=== PATIENT | female | born 1950 | race Caucasian/White ===

== ENCOUNTER → 2017-04-10 14:25 | Outpatient (CLI) | payer MEDICAID, SELFPAY ==
--- NOTE | 2017-04-10 14:26 | RAD_ITS ---
STUDY: X-RAY - PELVIS AND BILATERAL HIPS REASON FOR EXAM: Chronic bilateral hip pain. TECHNIQUE: Radiological exam, hip, bilateral, with pelvis when performed; 2 views COMPARISON: None. FINDINGS: There are phleboliths in the pelvis and a metallic clip in the right hemipelvis. There are degenerative changes of the lower lumbar spine. There is mild arthrosis of the left sacroiliac joint. Normal bilateral superior and inferior pubic rami. Normal pubic symphysis. Normal bilateral ischial tuberosities. Normal visualized right femoral head. Normal right acetabulum. Normal right hip joint. Normal visualized left femoral head. Normal left acetabulum. Normal left hip joint. RAD/Hips B/L min 2 views w/ Pelvis IMPRESSION: Mild left sacroiliac arthrosis. Degenerative changes lower lumbar spine. Electronically Signed: Juan Banda MD at 10:12 EST Tel , Service support ,
== END ==
PROVIDERS: Family Provider Nurse Practitioner Family; PCP Nurse Practitioner Family; Visit Provider Orthopaedic Surgery
DX: M25.551 Pain in right hip (principal); M25.552 Pain in left hip
CPT/HCPCS: 73521

== ENCOUNTER → 2017-10-22 13:30 | Outpatient (CLI) | payer MEDICAID, SELFPAY ==
[2017-10-30 12:26] LABS: HPV APTIMA, High Risk Negative (Negative)
== END ==
PROVIDERS: Visit Provider Obstetrics & Gynecology
DX: Z12.4 Encounter for screening for malignant neoplasm of cervix (principal)
CPT/HCPCS: 88175; G0145

== ENCOUNTER → 2018-05-21 11:17 | Outpatient (CLI) | payer MEDICARE, MEDICAID, SELFPAY ==
[2018-05-21 10:23] VITALS: BMI 37.0
--- NOTE | 2018-05-21 11:21 | RAD_ITS ---
STUDY: X-RAY - LEFT HAND REASON FOR EXAM: Female, 67 years old. Pain. Firm mass laterally. No known injury. TECHNIQUE: 3 view(s) of the hand. COMPARISON: None. FINDINGS: There is joint space narrowing of the radiocarpal articulation consistent with degenerative arthrosis. There is a positive ulnar variant of the distal radioulnar articulation. Normal visualized carpal bones. There is degenerative joint disease of the scaphotrapezium / trapezoid articulation. The remainder of the carpal articulations are normal. Normal carpometacarpal articulation of the thumb. Normal second through fifth carpometacarpal joints. Normal metacarpi. Normal metacarpophalangeal joint of the thumb. Normal interphalangeal joint of the thumb. Normal proximal and distal phalanges of the thumb. Normal metacarpophalangeal joints of the second through fifth fingers. Normal proximal and distal interphalangeal joints of the second through fifth fingers. Normal phalanges of the second through fifth fingers. No visualized soft tissue mass. RAD/Hand Min 3 Views IMPRESSION: Degenerative changes of the wrist. Electronically Signed: Erick Multani DO at 15:29 EDT Tel [phone], Service support ,
== END ==
PROVIDERS: Family Provider Internal Medicine; PCP Internal Medicine; Referring Provider Surgery; Visit Provider Surgery
DX: R22.32 Localized swelling, mass and lump, left upper limb (principal)
CPT/HCPCS: 73130

== ENCOUNTER 2018-07-01 06:27 | Day surgery (SDC) | payer MEDICARE, MEDICAID, SELFPAY ==
[2018-05-21 10:23] VITALS: BMI 37.0
--- NOTE | 2018-06-30 16:56 | PCM.HP.BLA ---
History and Physical Date of Admission: 07/01/18 HISTORY OF PRESENT ILLNESS 67 year old woman presents with a mass on the proximal aspect dorsum left hand by index finger that has increased in size over the last several months. There is some pain when her left hand is bumped. She has generalized numbness of the index finger, long finger, and ring finger for a while because of nerve compression in her neck. She has diabetes mellitus, and she states her latest HgbA1c was 7.4. Patient is right hand dominant. She has no trouble with activities of daily living. She denies fever. She denies trauma. She denies any infection. An X-Ray showed degenerative changes in the wrist. She presents at this time for further evaluation and treatment. PAST MEDICAL HISTORY Premature atrial contractions Premature ventricular contraction Tachycardia Paroxysmal atrial fibrillation Hypertension Hyperlipidemia [employer] current use of anticoagulant Chronic atrial fibrillation Arthritis Back problem Bleeding disorder Bone fracture Breast lump Cataract Depression Glaucoma IBS (irritable bowel syndrome) Neuropathy Osteoarthritis PTSD (post-traumatic stress disorder) Panic attacks Pituitary tumor Pneumonia Chronic fatigue Degenerative disc disease Diabetes Fibromyalgia GERD (gastroesophageal reflux disease) Osteopenia Seizure disorder, secondary Sleep apnea PAST SURGICAL HISTORY surgical removal of skin lesion cholecystectomy knee replacement left knee knee surgery repair of left rotator cuff tonsillectomy total hysterectomy tubal ligation total right knee replacement breast lumpectomy left knee arthroscopy tonsillectomy excision soft tissue mass ALLERGIES iodine povidone-iodine [From Betadine] adhesive tape latex soap [From Betadine] CHLORAPREP MEDICATIONS Amitriptyline HCl [Elavil] Atorvastatin Calcium [Lipitor] Meloxicam [Mobic] Valsartan [Diovan] predniSONE Estrogens,Esterified [Menest] Fluticasone 0.05% [Flonase Nasal [place]] Gabapentin [Neurontin] Lansoprazole [Prevacid] Latanoprost 0.005% [Xalatan Ophthalmic] Cetirizine HCl [Zyrtec] Cyanocobalamin [Vitamin B12] Methylsulfonylmethane [MSM] warfarin cholecalciferol (vitamin D3) duloxetine hydroxyzine verapamil ER FAMILY HISTORY Father - CAD (coronary artery disease), Melanoma, Respiratory disease, Skin cancer, ULCER DISEASE, Alzheimer disease, Anemia, Anxiety, Arthritis, Bleeding disorder, Depression (emotion), Heart disease, High cholesterol Mother - Diabetes, Arthritis, Heart disease, Hypertension, Osteoporosis Daughter - Hormonal disorder Brother - Anxiety, Asthma, Bleeding disorder, Depression (emotion), Heart disease Sister - Cancer, Lung cancer Grandfather - CVA (cerebral vascular accident) Grandmother - CVA (cerebral vascular accident) SOCIAL HISTORY Smoking Status: Never smoker alcohol intake: never substance use type: does not use REVIEW OF SYSTEMS General - Denies fever and weight loss. Has fatigue. Eyes -Has cataracts and glaucoma. ENT - Denies nasal congestion and sore throat. Has chronic sinus problems. Endocrine - Denies excessive thirst and urination. Has heat intolerance. Skin - Denies skin cancer. Has painful mass proximal aspect dorsum left hand by index finger. Musculoskeletal - Has joint pain, joint stiffness, weakness of muscles and joints, back pain, and arthritis. Neuro - Denies headaches. Has light headedness. Cardiovascular - Denies chest pain and shortness of breath with exertion. Has fatigue and light headedness. Psych - Denies anxiety. Has depression. Respiratory - Denies chronic cough. Has shortness of breath and asthma. Gastrointestinal - Denies nausea, vomiting, diarrhea, and constipation. Hematologic - Denies abnormal bruising and bleeding. Genitourinary - Denies hematuria and urinary frequency. Has incontinence. PHYSICAL EXAMINATION General - Alert and Oriented HEENT - PERRL. EOMI. Throat is clear. No suspicious lesions noted. Neck - Supple and nontender. No cervical adenopathy. No suspicious lesions noted. Lungs - Clear to auscultation. Heart - Regular rate and rhythm. Abdomen - Soft and nondistended. Extremities - FROM. No axillary adenopathy. Radial pulses are palpable. On the proximal aspect dorsum left hand by index finger is a 4 mm firm mass. It is mobile. Mild tenderness to palpation. No ulceration. Generalized paresthesias to pinprick to index finger, long finger, and ring finger. Neuro - CN II-XII grossly intact. Psych - Normal mood and affect. ASSESSMENT 1. 4 mm painful mass proximal aspect dorsum left hand by index finger. 2. Family history of skin cancer. PLAN Recommend excision of this firm mass dorsum left hand by index finger. It is mobile and doesn't appear to be adherent to the underlying tendons. Will send the mass to Pathology for analysis to rule out carcinoma. X-Ray showed degenerative changes in the wrist. Surgery can be done on an outpatient basis under local anesthesia and IV sedation. May need a forearm tourniquet for a little while. She states she is scheduled to have a mass excised from her left elbow next week at [facility] Will tentatively schedule excision of this hand mass after some healing has occurred, about 4-6 weeks. Patient was informed of the risks and complications of the procedure including alternatives to surgery. These were discussed with the patient personally. Patient voices understanding and wishes to proceed. Some of the risks and complications were included in a form from the [place] [employer].
[2018-07-01] VITALS (7 sets, daily range): BP systolic 105–130; BP diastolic 66–84; PULSE 89–98; RESP 16; TEMP 36.2–36.3; O2SAT 93–97; BMI 38.0
[2018-07-01 07:05] LABS: Prothrombin Time Fingerstick 11.3 SEC (11.9-14.4)
--- NOTE | 2018-07-01 08:00 | MASS_PTH ---
PATIENT: NOEMI LYON LOC: [facility] [place] U#:[id number] AGE/SX: 67/F ROOM: RE07/01/[address]: Dr. Dmitriy Zhang MD : 1950 BED: DIS: 07/01/2018 SPEC #: [id number] RECD: 07/01/18 09:38 STATUS: MAR NIKKI #: [id number] AFSHIN: 07/01/18 08:[address]: Dmitriy Zhang DEPT: SURGICAL PATHOLOGY RECD BY: Kin Mclean ENTERED: 07/01/18 11:45 SP TYPE: Mass OTHR DR: Dr. Meghann Jacob MD Tissues: Left hand Procedures: Surgery Specimen Level III HEADER OPERATION: Excision, soft tissue mass, dorsum hand by index finger PRE-OP DIAGNOSIS: Painful mass, 4mm, proximal aspect dorsum, left hand by index finger TISSUE SUBMITTED: Mass proximal aspect dorsum, left hand MICROSCOPIC DIAGNOSIS Left hand, mass proximal aspect dorsum, excision: Mature adipose tissue, consistent with lipoma with fat necrosis and dystrophic calcification. CHICO:jose alfredo 07/02/18 MICROSCOPIC DESCRIPTION Slides are reviewed. GROSS DESCRIPTION Received in fixative is one container labeled with the patient's name and designated mass proximal aspect dorsum left hand. The specimen consists of an irregular piece of soft tissue measuring 0.5 x 0.6 x 0.2 cm. The entire specimen is submitted in one cassette. / CHICO:jose alfredo 07/01/18 TC:1 CPT: 40249
[2018-07-01] MEDS: Cefazolin 2 GM in 0.9% Normal Saline 100 ML IV (08:02)
[2018-07-01] MEDS: Mupirocin Ointment 22gm Tube 1 APPLIC (08:20)
--- NOTE | 2018-07-01 08:26 | OP.PCM_ITS ---
Report of Operation Date of Procedure: 07/01/18 Pre-Operative Diagnosis: 1. 4 mm painful mass proximal aspect dorsum left hand by index finger. 2. Family history of skin cancer. Post-Operative Diagnosis: Same. Surgery/Procedure Performed:: Excision 4 mm painful mass proximal aspect dorsum left hand by index finger with 1 cm layered closure. Description of Surgical Findings:: 67 year old woman presents with a mass on the proximal aspect dorsum left hand by index finger that has increased in size over the last several months. There is some pain when her left hand is bumped. She has generalized numbness of the index finger, long finger, and ring finger for a while because of nerve compression in her neck. She has diabetes mellitus, and she states her latest HgbA1c was 7.4. Patient is right hand dominant. She has no trouble with a ctivities of daily living. She denies fever. She denies trauma. She denies any infection. An X-Ray showed degenerative changes in the wrist. Patient was informed of the risks and complications of the procedure including alternatives to surgery. These were discussed with the patient personally. Patient voices understanding and wishes to proceed. Some of the risks and complications were included in a form from the [place] [employer]. Some of the risks and complications that were discussed included but were not inclusive of failure to diagnose including symptom relief, pain, infection, numbness, stiffness, loss of digit, RSD (CRPS), need for further surgery, contracture, and wound healing problems. expanded function dental assistant: None Type of Anesthesia:: Local MAC - xylocaine with epinephrine and IV sedation. Specimen's removed: Painful mass proximal aspect dorsum left hand by index finger to Pathology. Drains: None. Estimated Blood Loss (mL): 2 ml. Description of Procedure: Patient was taken to OR in supine position and was given IV sedation. The left hand was prepped and draped in the usual fashion. SCD's were placed for DVT prophylaxis. Perioperative antibiotics were given intravenously. A forearm tourniquet was placed. The mass proximal aspect dorsum left hand by index finger was infiltrated with xylocaine and epinephrine. After waiting 5 minutes for the anesthetic to take effect, a longitudinal incision was made over the mass. The firm mass was dissected free from the surrounding subcutaneous tissue. It was not adherent to the underlying tendon. It was not adherent to the overlying skin. The mass firm and bilobed. It was well encapsulated. The mass was sent to Pathology for analysis to rule out carcinoma. Hemostasis was obtained with electrocautery. The wound was irrigated with saline. The wound was closed in a layered fashion with 5-0 Monocryl interrupted sutures for the deep dermis and subcutaneous tissue. The skin was approximated with 5-0 Prolene simple interrupted sutures. Antibiotic ointment was applied followed by 2x2 gauze followed by a compression peña wrap. The length of the layered closure was 1 cm. Patient tolerated the procedure well and was sent to PACU in satisfactory condition. Patient will be sent home on antibiotics and pain medication. She will keep her left hand elevated during the initial postop period. Patient will followup in a week for a wound check and for discussion of the pathology report. Will remove the sutures in 2 weeks. Encourage range of motion exercises to minimize stiffness. Grafts/Implants Used: None. - Complications None. - Admit VTE Documentation VTE Present on Admission: No VTE Mechan Device Prophylaxis: SCD's VTE Pharm Prophylaxis ordered?: No Code Visit Surgery Charges CPT - 00938 ICD-10 - R22.32, R20.8, Z80.8
--- NOTE | 2018-07-01 08:39 | DCINST_ITS ---
You will use the following diet at home:: No restrictions Discharge Activity: May not drive while taking narcotic pain medications., May Shower - in two days., - - no heavy lifting with left hand. keep left hand elevated. May shower in (days): 2 May resume sexual activity in: No Restrictions Ice area for (Minutes): 5 - as needed for swelling. Weight Bearing Status: Weight bearing as tolerated Lifting Restrictions: 10 lbs. Keep extremity elevated above heart level: Left Arm Call your doctor if your incision/area has: Continuous Slow Oozing, Sudden Increased Bleeding, Increased Pain/ Swelling, Increased Redness, Foul Smelling Discharge, Swelling at the incision site Call your doctor if you observe: Fever of 101 or Higher, Coldness, Increased Pain, Shortness of breath, Chest pain, Calf discomfort, Uncontrolled pain Suture Line Care: - - after dressing removed in two days, apply antibiotic ointment to suture line daily. Change Dressing in (Days):: 2 - reapply peña wrap after showering. Cleanse incision/area with: - - may get incision wet in the shower in two days. Additional Instructions: May resume Coumadin tomorrow 07/02/18. Allergies/Adverse Reactions: Allergies iodine Allergy (Verified 06/25/18 13:18) BREATHING ISSUES/PRESSURE IN CHEST CT DYE AND TOPICALLY ALLERGY povidone-iodine [From Betadine] Allergy (Verified 06/25/18 13:18) Rash adhesive tape Adverse Reaction (Severe, Verified 06/25/18 13:18) SKIN BREAKDOWN latex Adverse Reaction (Severe, Verified 06/25/18 13:18) ADVERSE REACTION soap [From Betadine] Adverse Reaction (Verified 06/25/18 13:18) Rash CLORAPREP Allergy (Uncoded 06/25/18 13:18) Itching Medications to take at Discharge Amitriptyline HCl [Elavil] 25 mg PO QHS 12/22/14 Atorvastatin Calcium [Lipitor] 80 mg PO QHS 12/22/14 Meloxicam [Mobic] 15 mg PO DAILY 12/22/14 Valsartan [Diovan] 320 mg PO QHS 12/22/14 predniSONE tablet 5 mg PO DAILY 12/22/14 Estrogens,Esterified [Menest] 1.25 mg PO QHS 04/22/15 Fluticasone 0.05% [Flonase Nasal [place]] 2 spray NASAL BID 04/22/15 Gabapentin [Neurontin] 1,200 mg PO TID 04/22/15 Lansoprazole [Prevacid] 30 mg PO BID 04/22/15 Latanoprost 0.005% [Xalatan Opthalmic] 1 drp EACH EYE QHS 04/22/15 Cetirizine HCl [Zyrtec] 10 mg PO DAILY 12/05/15 Cyanocobalamin [Vitamin B12] 500 mcg PO DAILY 12/05/15 Methylsulfonylmethane [MSM] 3 - 5 cap PO DAILY 12/05/15 Oxygen, Home [Home Oxygen] 3 lpm NASAL QHS 12/05/15 warfarin 3 mg tablet 3 mg PO QDAY #30 tab 05/21/17 cholecalciferol (vitamin D3) 1,000 unit tablet 3,000 unit PO QDAY tab 08/14/17 duloxetine 60 mg capsule,delayed release 60 mg PO QDAY cap 08/14/17 hydroxyzine HCl 50 mg tablet 50 mg PO DAILY PRN 08/14/17 verapamil ER 360 mg 24 hr capsule,extended release 360 mg PO QHS #90 cap 01/20/18 Cefadroxil [Duricef] 500 mg PO BID #8 cap 07/01/18 Lactobacillus Acidophilus/Fos [Acidophilus Probiotic Tablet] 1 ea PO BID #10 tab 07/01/18 Oxycodone HCl/Acetaminophen [Percocet 5/325] 1 tab PO 4X/DAY PRN PRN 4 Days #15 tab 07/01/18 The following prescriptions were given: Oxycodone HCl/Acetaminophen [Percocet 5/325] 1 tab PO 4X/DAY PRN PRN 4 Days #15 tab PRN Reason: Pain Cefadroxil [Duricef] 500 mg PO BID #8 cap Lactobacillus Acidophilus/Fos [Acidophilus Probiotic Tablet] 1 ea PO BID #10 tab Primary Care Physician: Meghann Jacob MD [Primary Care Provider] - Test Results: Test results from this visit will be discussed in further detail at your follow- up appointment, if applicable. Please Follow Up With: Dmitriy Zhang MD When: one week. call [phone] for appt. Proposed Discharge Date: 07/01/18
== END 2018-07-01 10:00 | disposition home or self-care (01) ==
LOC: SDC 06:28 → AC 06:29
PROVIDERS: Family Provider Internal Medicine; PCP Internal Medicine; Referring Provider Surgery; Visit Provider Surgery
PROC: (CPT 12041; principal; 2018-07-01 07:45)
DX: R22.32 Localized swelling, mass and lump, left upper limb (principal); R20.0 Anesthesia of skin; I48.0 Paroxysmal atrial fibrillation; I10 Essential (primary) hypertension; M19.90 Unspecified osteoarthritis, unspecified site; E11.9 Type 2 diabetes mellitus without complications; M79.7 Fibromyalgia; K21.9 Gastro-esophageal reflux disease without esophagitis; G47.30 Sleep apnea, unspecified; G40.909 Epilepsy, unspecified, not intractable, without status epilepticus; E78.5 Hyperlipidemia, unspecified; H40.9 Unspecified glaucoma; K58.9 Irritable bowel syndrome, unspecified; F32.9 Major depressive disorder, single episode, unspecified; F43.10 Post-traumatic stress disorder, unspecified; F41.0 Panic disorder [episodic paroxysmal anxiety]; F41.9 Anxiety disorder, unspecified; G62.9 Polyneuropathy, unspecified; J45.909 Unspecified asthma, uncomplicated; Z79.01 Long term (current) use of anticoagulants; Z79.899 Other long term (current) drug therapy; Z80.8 Family history of malignant neoplasm of other organs or systems
CPT/HCPCS: 11420; 12041; 36416; 85610; 88304; 88305; J7120

== ENCOUNTER → 2018-07-22 | Outpatient (CLI) | payer MEDICARE, MEDICAID, SELFPAY ==
[2018-07-09 10:09] VITALS: BMI 38.0
--- NOTE | 2018-07-22 08:18 | CT_ITS ---
STUDY: CT ABDOMEN AND PELVIS WITHOUT CONTRAST REASON FOR EXAM: Female, 67 years old. Need for panniculus surgery. Check for hernia. RADIATION DOSAGE (If Supplied By Facility): CTDIvol = ( 21.07 ) mGy, DLP = ( 1168.50 ) mGycm TECHNIQUE: Transaxial images were obtained from the dome of the diaphragm to the symphysis pubis without oral contrast, and without intravenous contrast. Sagittal and coronal images were reconstructed. Individualized dose optimization techniques were used for this CT. COMPARISON: None. FINDINGS: There is minimal fibronodular scarring in the lung bases. Heart size within normal limits. There are atherosclerotic calcifications of the right coronary artery. Normal liver. The portal vein diameter is 14 mm. There are surgical clips in the gallbladder fossa consistent with a prior cholecystectomy. The common bile duct diameter is 5.5 mm. Normal spleen. Normal pancreas. Normal bilateral adrenal glands. There are numerous bilateral nonobstructing renal calyceal stones. One of the largest is a 10.5 x 6 x 3.5 mm stone in upper pole calyx of the right kidney. No hydronephrosis. Normal visualized stomach. Normal small intestine. Normal colon. The appendix is visualized and appears normal. There is mild atherosclerotic calcification and tortuosity of the abdominal aorta, without a demonstrated aneurysm. Normal inferior vena cava. Normal retroperitoneum. There is mild tethering deformity of the anterior superior margin of the urinary bladder along the expected course of the remnant urachal ligament. There is absence of the uterus consistent with a prior hysterectomy. There is a 2 cm long, 1 cm diameter umbilical hernia containing fat. The patient is obese. There are multilevel degenerative changes of the visualized lumbar spine and a 16 degree levoscoliosis centered at L4. There are gas lucencies of vacuum phenomenon multilevel disc spaces. Subcentimeter gas lucency in the anterior spinal canal to the right of midline at L4 presumably reflects an L4-[address]/Abdomen/Pelvis without Cont IMPRESSION: 1. Small fat-containing umbilical hernia, as noted. 2. Bilateral nonobstructing nephrolithiasis. No hydronephrosis. 3. Prior cholecystectomy and hysterectomy. 4. Multilevel degenerative changes of the mid to lower lumbar spine, including partially gas-filled L4-5 disc extrusion residing posterior to the L4 vertebra to the right of midline. Electronically Signed: Emiliano Dooley MD at 16:58 EDT , Service support ,
== END | disposition home or self-care (01) ==
LOC: CT 08:17
PROVIDERS: Family Provider Internal Medicine; PCP Internal Medicine; Referring Provider Surgery; Visit Provider Surgery
DX: E65 Localized adiposity (principal); L30.4 Erythema intertrigo; M54.00 Panniculitis affecting regions of neck and back, site unspecified; M54.5 Low back pain; R10.9 Unspecified abdominal pain
CPT/HCPCS: 74176

== ENCOUNTER → 2018-11-19 | Outpatient (CLI) | payer MEDICARE, MEDICAID, SELFPAY ==
[2018-09-22 14:20] VITALS: BMI 37.6
[2018-11-19 11:01] LABS: Anion Gap 10 (5-15); Chloride 104 mmol/L (98-107); Potassium 3.5 mmol/L (3.5-5.1); Sodium Level 142 mmol/L (136-145); Thyroid Stim Hormone (TSH) 2.71 uIU/mL (0.358-3.74)
[2018-11-19 11:43] LABS: Vitamin B12 1221 pg/mL (211-911)
[2018-11-21 01:38] LABS: Rapid Plasmin Reagin (RPR) NONREACTIVE (NONREACTIVE)
== END | disposition home or self-care (01) ==
LOC: LAB 10:11
PROVIDERS: Family Provider Internal Medicine; PCP Internal Medicine; Referring Provider Psychiatry & Neurology Neurology; Visit Provider Psychiatry & Neurology Neurology
DX: R41.3 Other amnesia (principal)
CPT/HCPCS: 36415; 80051; 82607; 84443; 86592

== ENCOUNTER → 2019-12-08 | Outpatient (CLI) | payer MEDICARE, MEDICAID, SELFPAY ==
[2019-09-21 13:05] VITALS: BMI 36.2
== END | disposition home or self-care (01) ==
LOC: LABSPEC 12-09 09:08
PROVIDERS: PCP Family Medicine; Visit Provider Obstetrics & Gynecology
DX: Z12.4 Encounter for screening for malignant neoplasm of cervix (principal)
CPT/HCPCS: 88175; G0145

== ENCOUNTER → 2020-06-09 13:31 | Outpatient (CLI) | payer MEDICARE, MEDICAID, SELFPAY ==
[2020-05-27 10:27] VITALS: BMI 35.0
[2020-06-01 13:59] VITALS: BMI 34.9
--- NOTE | 2020-06-09 13:35 | ECHOD_ITS ---
Reason For Study: ATRIAL FIB-FLUTTER Procedure This was a 2D Doppler, Color Flow transthoracic echocardiogram. The exam was of adequate technical quality. Exam performed in department. Left Ventricle Normal LV size. Left ventricular systolic function is normal. The estimated ejection fraction is 65 %. No evidence for diastolic dysfunction. No regional wall motion abnormalities noted. Right Ventricle Normal RV size. Normal systolic function. Atria Normal left atrium. Normal right atrium. No doppler evidence for ASD. Mitral Valve There is mild mitral annular calcification. Extension of the mitral annular calcification on the base of the posterior mitral valve leaflet. Trivial mitral valve insufficiency. Tricuspid Valve Normal tricuspid valve. Trivial tricuspid valve insufficiency. Unable to estimate RV systolic pressure due to insufficient tricuspid regurgitant envelope. Aortic Valve Trisinus/trileaflet aortic valve. Normal aortic valve. Pulmonic Valve The pulmonic valve is not well visualized. Great Vessels Normal sized aortic root. Pericardium/Pleural No pericardial effusion. MMode/2D Measurements & Calculations LVIDd: 3.6 cm IVSd: 0.81 cm Ao root diam: 3.1 cm LVIDs: 2.6 cm LVPWd: 0.80 cm RVDd: 2.7 cm FS: 29.3 % LAV(MOD-bp): 20.8 ml LVAd ap4: 21.5 cm2 SV(MOD-sp4): 38.5 ml LAV(MOD-bp) Indexed: 11.1 ml/m2 EDV(MOD-sp4): 58.3 ml LAV(MOD-sp2): 22.1 ml EDV(sp4-el): 60.1 ml LAV(MOD-sp4): 19.4 ml LVAs ap4: 11.5 cm2 ESV(MOD-sp4): 19.8 ml ESV(sp4-el): 20.1 ml EF(MOD-sp4): 66.1 % EF(sp4-el): 66.5 % SV(sp4-el): 40.0 ml LA A4 area: 10.6 cm2 LA dimension(2D): 3.4 cm RA A4 area: 9.3 cm2 Time Measurements MV dec time: 0.18 sec Doppler Measurements & Calculations MV E max nirmal: 72.9 cm/sec Lat Peak E' Nirmal: 10.0 cm/sec Med Peak E' Nirmal: 5.7 cm/sec MV A max nirmal: 97.2 cm/sec E/E' lat: 7.3 E/E' med: 12.8 MV E/A: 0.75 Ao V2 max: 135.2 cm/sec LV V1 max: 96.4 cm/sec PA V2 max: 111.5 cm/sec Ao max P.3 mmHg LV V1 max P.7 mmHg ECHO/Echo Complete Interpretation Summary Left ventricular systolic function is normal. The estimated ejection fraction is 65 %. There is mild mitral annular calcification. Extension of the mitral annular calcification on the base of the posterior mitr al valve leaflet. Trivial mitral valve insufficiency. Trivial tricuspid valve insufficiency. Unable to estimate RV systolic pressure due to insufficient tricuspid regurgita nt envelope. No evidence for diastolic dysfunction. Ordering Physician: Silvia Ruggiero/Jose A Cruz Referring Physician: LETHA ROWE Performed By: Cailin Fabian RDCS
--- NOTE | 2020-06-09 14:26 | CT_ITS ---
STUDY: CT RIGHT LOWER EXTREMITY WITHOUT CONTRAST REASON FOR EXAM: Right knee osteoarthritis, surgical planning. TECHNIQUE: Transaxial CT imaging of the lower extremity was performed. Coronal and sagittal images were reformatted. Individualized dose optimization techniques were used for this CT. COMPARISON: Radiographs 05/27/2020. FINDINGS: Knee: There are marginal osteophytes and joint space narrowing of the medial femorotibial compartment (coronal reconstruction 24). There are marginal osteophytes and joint space narrowing of the lateral femorotibial compartment (coronal reconstruction 28). There are marginal osteophytes and mild joint space narrowing at the lateral aspect of the patellofemoral articulation (axial image 271). There is subchondral cystic change of the head of the fibula at the proximal tibiofibular articulation (sagittal reconstructions 24-27). There is a joint effusion. The quadriceps tendon is grossly normal. The patellar tendon is grossly normal. Normal Hoffa''s fat pad. There is an intra-articular body inferior to the patellofemoral articulation (axial images 289-296) measuring 1 cm in transverse dimension. There is vascular calcification. Hip: There is mild right hip arthrosis with mild joint space narrowing (coronal reconstruction 70). Ankle: Normal tibiotalar, posterior subtalar, talonavicular and calcaneocuboid articulations. CT/Extremity Lower without Contra IMPRESSION: Tricompartmental arthrosis of the right knee with intra-articular body and joint effusion. Electronically Signed: Juan Banda MD at 9:22 EDT Tel , Service support ,
== END ==
PROVIDERS: PCP Family Medicine; Referring Provider Orthopaedic Surgery; Visit Provider Orthopaedic Surgery
DX: I49.1 Atrial premature depolarization (principal); I48.0 Paroxysmal atrial fibrillation; I10 Essential (primary) hypertension; M17.11 Unilateral primary osteoarthritis, right knee
CPT/HCPCS: 73700; 93306

== ENCOUNTER 2020-06-21 15:26 | Observation (INO) | payer MEDICARE, MEDICAID, SELFPAY ==
[2020-05-27 10:27] VITALS: BMI 35.0
[2020-06-01 13:59] VITALS: BMI 34.9
[2020-06-03 11:15] LABS: Absolute Lymphocyte Count 1.34 X10^3/uL (0.83-4.51); Absolute Neutrophil Count 12.8 X10^3/uL (2.0-7.7); Basophil# 0.08 X10^3/uL; Basophil% 0.5 % (0-1); Eosinophil# 0.22 X10^3/uL; Eosinophils% 1.4 % (0-5); Hematocrit 45.2 % (37-47); Hemoglobin 14.8 g/dL (12.0-15.0); Lymphocyte # 1.34 X10^3/ul (4.0); Lymphocyte % 8.6 % (19-41); Mean Corp Hgb Conc 32.7 g/dL (32-36); Mean Corpuscular Hgb 29.9 pg (27.0-32.0); Mean Corpuscular Volume 91.3 fL (81-99); Mean Platelet Vol. 9.4 fl (6.2-12.0); Monocyte# 1.12 X10^3/uL; Monocyte% 7.2 % (0-10); NRBC Flagged by Analyzer 0 % (0-5); Neutrophil # 12.78 X10^3/uL (2.7-7.7); Neutrophil % 81.8 % (47-70); Platelet Count 282 K/mm3 (150-450); RBC Distribution Width CV 13.2 % (11.6-14.6); RBC Distribution Width SD 44.3 fl (35.1-43.9); Red Blood Count 4.95 M/mm3 (4.2-5.4); White Blood Count 15.6 K/mm3 (4.4-11.0)
[2020-06-03 11:24] LABS: International Normalized Ratio 2.7; Partial Thromboplast Time 31.3 Seconds (24.1-36.2); Prothrombin Time (Protime)PT. 27.5 SECONDS (11.7-14.9)
[2020-06-03 11:53] LABS: Anion Gap 8 (5-15); BUN 14 mg/dL (7-18); BUN/Creat Ratio 14.3 RATIO (10-20); Calcium,Total 8.9 mg/dL (8.5-10.1); Chloride 102 mmol/L (98-107); Creatinine, Serum 0.98 mg/dL (0.55-1.02); EST Glomerular Filtration Rate 60 mL/min (>60); Est Glom Filt Rate - Afr Amer 73 mL/min (>60); Glucose 135 mg/dL (74-106); Potassium 3.5 mmol/L (3.5-5.1); Sodium Level 138 mmol/L (136-145)
[2020-06-04 09:01] LABS: Fructosamine 243 umol/L (0-285)
[2020-06-14] MEDS: Lactated Ringers 1,000 ML 100 ML IV (07:00)
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
[2020-06-14 07:14] VITALS: BMI 35.0
[2020-06-14 07:55] VITALS: BP 128/73; PULSE 91; RESP 20; TEMP 36.2; O2SAT 94; BMI 35.4
[2020-06-14 07:55] LABS: INR Fingerstick 1.2; Prothrombin Time Fingerstick 14.6 SEC (11.9-14.4)
[2020-06-14 08:00] LABS: Absolute Lymphocyte Count 1.14 X10^3/uL (0.83-4.51); Absolute Neutrophil Count 10.3 X10^3/uL (2.0-7.7); Basophil# 0.05 X10^3/uL; Basophil% 0.4 % (0-1); Eosinophil# 0.13 X10^3/uL; Hematocrit 42.7 % (37-47); Hemoglobin 13.9 g/dL (12.0-15.0); Lymphocyte # 1.14 X10^3/ul (0.83-4.51); Lymphocyte % 8.8 % (19-41); Mean Corp Hgb Conc 32.6 g/dL (32-36); Mean Corpuscular Hgb 29.8 pg (27.0-32.0); Mean Corpuscular Volume 91.4 fL (81-99); Mean Platelet Vol. 9.2 fl (6.2-12.0); Monocyte# 1.18 X10^3/uL; Monocyte% 9.1 % (0-10); NRBC Flagged by Analyzer 0 % (0-5); Neutrophil % 79.7 % (47-70); Platelet Count 316 K/mm3 (150-450); RBC Distribution Width CV 13.4 % (11.6-14.6); RBC Distribution Width SD 44.8 fl (35.1-43.9); Red Blood Count 4.67 M/mm3 (4.2-5.4); White Blood Count 12.9 K/mm3 (4.4-11.0)
[2020-06-14 08:05] LABS: Bedside Glucose 125 mg/dL (70-110)
[2020-06-14] MEDS: Celecoxib 200 MG Capsule 400 MG PO (08:05)
[2020-06-14] MEDS: Acetaminophen 500 MG Tablet 1000 MG PO (08:06)
[2020-06-14 08:39] LABS: Mucous, Urine 0 SEEN /hpf (<or=2+); Red Blood Cells-Urine 0 SEEN /hpf (0-5)
[2020-06-14 08:40] LABS: Color, Urine Yellow (Yellow); Glucose, Dipstick 100 mg/dl (Normal); Ketone-Dipstick Negative (Negative); Leukocyte Esterase-Dipstick 25 /ul (Negative); Nitrite-Dipstick Negative (Negative); Occult Blood-Urine Negative /ul (Negative); Protein-Dipstick Negative (Negative); Specific Gravity, Urine 1.015 (1.002-1.030); Urine Bilirubin Dipstick Negative (Negative); Urine Clarity Sl. Cloudy (Clear); Urine Urobilinogen Normal (Normal)
[2020-06-14 08:46] LABS: White Blood Cells 5-10 SEEN /hpf (0-5)
[2020-06-14 08:47] LABS: Bacteria RARE /hpf (None Seen); Squamous Epithelial Cells - UA 0-5 SEEN /hpf (5-10)
[2020-06-20 08:30] LABS: Mucous, Urine 0 SEEN /hpf (<or=2+); Red Blood Cells-Urine 0 SEEN /hpf (0-5)
[2020-06-20 10:16] LABS: Color, Urine Yellow (Yellow); Glucose, Dipstick 100 mg/dl (Normal); Ketone-Dipstick Negative (Negative); Leukocyte Esterase-Dipstick 25 /ul (Negative); Nitrite-Dipstick Negative (Negative); Occult Blood-Urine Negative /ul (Negative); Protein-Dipstick 15 mg/dl (Negative); Urine Bilirubin Dipstick Negative (Negative); Urine Clarity Clear (Clear); Urine Urobilinogen Normal (Normal)
[2020-06-20 10:17] LABS: Absolute Neutrophil Count 6.1 X10^3/uL (2.0-7.7); Basophil# 0.04 X10^3/uL; Basophil% 0.5 % (0-1); Eosinophil# 0.21 X10^3/uL; Eosinophils% 2.5 % (0-5); Hematocrit 41.8 % (37-47); Hemoglobin 13.2 g/dL (12.0-15.0); Lymphocyte % 15.4 % (19-41); Mean Corp Hgb Conc 31.6 g/dL (32-36); Mean Corpuscular Hgb 29.3 pg (27.0-32.0); Mean Corpuscular Volume 92.9 fL (81-99); Mean Platelet Vol. 9.7 fl (6.2-12.0); Monocyte# 0.75 X10^3/uL; Monocyte% 8.9 % (0-10); NRBC Flagged by Analyzer 0 % (0-5); Neutrophil # 6.12 X10^3/uL (2.7-7.7); Neutrophil % 72.2 % (47-70); Platelet Count 304 K/mm3 (150-450); RBC Distribution Width CV 13.6 % (11.6-14.6); RBC Distribution Width SD 45.8 fl (35.1-43.9); White Blood Count 8.5 K/mm3 (4.4-11.0)
[2020-06-20 10:24] LABS: Bacteria RARE /hpf (None Seen); Squamous Epithelial Cells - UA 0-5 SEEN /hpf (5-10); White Blood Cells 0-5 SEEN /hpf (0-5)
[2020-06-21] VITALS (13 sets, daily range): BP systolic 116–154; BP diastolic 66–83; PULSE 71–110; RESP 14–18; TEMP 36.5–37.4; O2SAT 91–99; BMI 34.9
[2020-06-21] MEDS: Celecoxib 200 MG Capsule 400 MG PO (07:00)
[2020-06-21] MEDS: Acetaminophen 500 MG Tablet 1000 MG PO ×2 (07:00→21:27)
[2020-06-21] MEDS: Gabapentin 600 MG Tablet PO (07:00)
[2020-06-21] MEDS: Lactated Ringers 1,000 ML 100 ML IV (07:00)
[2020-06-21 11:41] LABS: INR Fingerstick 1.3; Prothrombin Time Fingerstick 15.9 SEC (11.9-14.4)
[2020-06-21 12:15] LABS: Bedside Glucose 143 mg/dL (70-110)
[2020-06-21] MEDS: Cefazolin 2 GM in 0.9% Normal Saline 100 ML IV (13:03)
[2020-06-21] MEDS: dexAMETHasone 10 MG/ML Vial IV (13:20)
[2020-06-21] MEDS: Betamethasone/Betamethasone 30 MG/5 ML Vial (14:27)
[2020-06-21] MEDS: Epinephrine (1 mg/ml) 1 MG/ML VIAL (14:27)
[2020-06-21] MEDS: Bupivacaine 0.5% PF 10 ML VIAL (14:27)
[2020-06-21] MEDS: 0.9% Normal Saline (Pres. free 10 ML Vial (14:27)
--- NOTE | 2020-06-21 15:12 | OP.PCM_ITS ---
Report of Operation Description of Surgical Findings:: Preoperative diagnosis: [Right] knee DJD Postoperative diagnosis: [Same] Procedure: [Right] total knee arthroplasty CT guided Robotic Assisted Implant: Simon triathlonCemented femoral component size2, Cementedtibial baseplate size 3, Cemented[asymmetric] patella size 29, polyethylene X3 size [9] [CS]2 Anesthesia: Generalwith adductor canal block Tourniquet time: 55 [minutes at 300 mmHg] Complications: None Condition: Stable to PACU Estimated blood loss:125 cc Indication for procedure: This is a 69-year-old female with long standing degenerative joint disease of the knee who has failed conservative treatment and wished to proceed with elective total knee arthroplasty. Risk benefits and alternatives were reviewed including; risk of bleeding, infection, nerve artery and tissue damage, continued pain, postoperative stiffness, venous thromboembolism, need for postoperative rehabilitation, mechanical feel to the knee, and expected postoperative course. The operative CT and templating was performed with component sizing Procedure: The patient was met in the preoperative holding area. The operative extremity was identified by both patient and physician and was marked. Patient was met by anesthesia. An adductor canal block was placed by anesthesia [postop eratively] the patient was brought back to the operating room on a wheeled cart and transferred to the operating table in the supine position. Anesthesia was started. A well-padded tourniquet was placed on the operative extremity. The patient was prepped and draped in the usual sterile fashion. A timeout was called to ensure the proper patient procedure and extremity were being contemplated. An Esmarch was used to exsanguinate the extremity. The tourniquet was inflated. A 10 blade scalpel was used to make a midline incision down through the skin and subcutaneous tissue. Skin retractors placed. Bovie was used to perform meticulous hemostasis. full-thickness flaps were elevated medial and lateral along the joint capsule. A deep blade scalpel was used to perform a medial parapatellar arthrotomy. The knee was brought to full extension. A Bovie was used to release the soft tissues off the most proximal aspect of the medial tibial plateau, a three-quarter inch curved osteotome was also used for this process. The infrapatellar fat pad was excised. [The superior fat pad was excised partially anteriorolateraly and portion the anterioromedial pad was elevated from the femur]. At this point our intra- articular femoral array was placed of a 45 degree angle proximal and posterior to the medial epicondyle. Our tibial array was placed greater than 1 hands breath below the incision at a 20 degree angle stab incisions were used for this case were attached and checked with the robotic software. Tourniquet was let down. At this point registration hernández were taken throughout the knee as well as checkpoints placed in the femur and tibia once the knee was registered then tensioned the medial and lateral ligaments in extension and 90 degrees of flexion. We then used these numbers to adjust our components within parameters to balance the knee in both flexion and extension once this was done on our monitor we then proceeded with using the robotic arm to make our tibial plateau cut and anterior posterior and chamfer cuts and distal on the femur we then trialed and achieved the desired plan with a well-balanced knee. Lug holes were drilled in the femur the tibia preparation was completed with a fin punch and the patella was prepared by first using a caliper to ensure sufficient bone stock and a patellar reamer to remove the desired amount of bone locals were drilled for an asymmetric poly-. We then brought the knee through range of motion with excellent patellar tracking. We thoroughly irrigated the knee with a trial components were removed a posterior capsular injection with her standard cocktail was performed the aqua Mantis was also used to aid in hemostasis. Betadine rinse was allowed to sit and washed out components were [press-fit into place]. Aricept rinse was then used followed by several more rate liters of irrigation after it was allowed to sit. Joint capsule was closed with #1 Ethibond [id number]'s followed by Vicryl in the subcutaneous tissues staple in the skin arrays and checkpoints were removed prior to closure all counts were correct stab incisions were closed with a stable standard dressing in the form of Mepilex for the main incision Xeroform 4 x 4 and Tegaderm over pin site holes. Thigh-high REMY hose applied over top of dressing. Patient tolerated the procedure well and was directed to PACU in stable condition no intraoperative complications Admit VTE Documentation VTE Mechan Device Prophylaxis: SCD's
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
--- NOTE | 2020-06-21 16:10 | RAD_ITS ---
STUDY: X-RAY - RIGHT KNEE REASON FOR EXAM: Female, 69 years old. Postoperative exam TECHNIQUE: 2 view(s) of the knee. COMPARISON: May 27, 2020 FINDINGS: There is total knee placement. Alignment is near-anatomic. There is postoperative change in the soft tissues. RAD/Knee 1 or 2 Views IMPRESSION: Right knee replacement. Electronically Signed: Isaiah Kuhn MD at 16:37 EDT , Service support ,
[2020-06-21] MEDS: Lactated Ringers 1,000 ML 125 ML IV ×2 (16:20→18:57)
[2020-06-21] MEDS: Cefazolin 1 GM/50 ML BAG IV (17:00)
[2020-06-21] MEDS: Ensure Surgery 237 ML LIQUID PO (18:57)
[2020-06-21] MEDS: Ketorolac 15 MG/ML Vial IV (21:15)
[2020-06-21] MEDS: Atorvastatin Calcium 80 MG Tablet PO (21:27)
[2020-06-21] MEDS: Verapamil SR 180 MG CAPSULE 360 MG PO (21:28)
[2020-06-21] MEDS: DULoxetine Hcl 60 MG Capsule PO (21:28)
[2020-06-21] MEDS: Pantoprazole Sodium 40 MG Tablet PO (21:28)
[2020-06-21] MEDS: Gabapentin 400 MG Capsule 1200 MG PO (21:29)
[2020-06-21] MEDS: Senna/Docusate Sodium 1 Tablet 2 TABLET PO (21:30)
[2020-06-21] MEDS: Losartan Potassium 100 MG Tablet PO (21:31)
[2020-06-21] MEDS: Amitriptyline 25 MG Tablet PO (21:31)
[2020-06-21] MEDS: Latanoprost 0.005% 1 Bottle 1 DRP OPHTHALMIC (21:37)
[2020-06-22] VITALS (8 sets, daily range): BP systolic 124–148; BP diastolic 59–82; PULSE 70–104; RESP 18; TEMP 36.4–37.1; O2SAT 93–98
[2020-06-22] MEDS: Cefazolin 1 GM/50 ML BAG IV ×2 (00:52→08:38)
[2020-06-22] MEDS: Acetaminophen 500 MG Tablet 1000 MG PO ×2 (06:14→22:00)
[2020-06-22] MEDS: Gabapentin 400 MG Capsule 1200 MG PO ×3 (06:14→22:04)
[2020-06-22] MEDS: Pantoprazole Sodium 40 MG Tablet PO ×2 (06:19→22:04)
[2020-06-22] MEDS: Donepezil HCl 10 MG Tablet PO (06:19)
[2020-06-22] MEDS: 0.9% NaCl Peripheral Flush Adult/Peds IV ×2 (06:23→22:01)
[2020-06-22 07:13] LABS: Hematocrit 35.4 % (37-47); Hemoglobin 10.9 g/dL (12.0-15.0); Mean Corp Hgb Conc 30.8 g/dL (32-36); Mean Corpuscular Hgb 28.8 pg (27.0-32.0); Mean Corpuscular Volume 93.7 fL (81-99); Mean Platelet Vol. 9.7 fl (6.2-12.0); Platelet Count 267 K/mm3 (150-450); RBC Distribution Width CV 13.3 % (11.6-14.6); RBC Distribution Width SD 45.7 fl (35.1-43.9); Red Blood Count 3.78 M/mm3 (4.2-5.4); White Blood Count 20.4 K/mm3 (4.4-11.0)
--- NOTE | 2020-06-22 07:41 | PN.ORTHO_ITS ---
Subjective Subjective: Seen and examined. Doing well pain controlled denies fevers chills nausea vomiting shortness of breath or chest pain. No other complaints Objective Data Objective Data Vital Signs: Vital Signs Temp Pulse Resp BP Pulse Ox 97.7 F L 92 18 130/63 H 98 06/22/20 06:11 06/22/20 06:11 06/22/20 06:11 06/22/20 06:11 06/22/20 06:11 Oxygen Flow Rate (L/min) 4 Oxygen Delivery Method Nasal Cannula Weight: 191 lb 2.252 oz Body Mass Index (BMI) 34.9 Intake & Output: Intake and Output for Last 24 Hours 06/20/20 06/21/20 06/22/20 23:59 23:59 23:59 Intake Total 2085 / 2085 3288.33 / 3288.33 Output Total 900 / 900 Balance 1185 / 1185 3288.33 / 3288.33 Lab / Micro Data Result Diagrams: 06/22/20 06:25 06/03/20 10:56 Labs: Laboratory Results - last 24 hr 06/21/20 06/21/20 06/22/20 11:37 12:00 06:25 WBC 20.4 H RBC 3.78 L Hgb 10.9 L Hct 35.4 L MCV 93.7 MCH 28.8 MCHC 30.8 L RDW Std Deviation 45.7 H RDW Coeff of Tia 13.3 Plt Count 267 MPV 9.7 POC PT 15.9 H INR 1.3 POC Glucose 143 H Micro: Microbiology 06/03/20 10:56 Swab (Method) Nasal Screen MRSA/MSSA - Final Radiography Diagnostic Testing: Radiology Impression Knee X-Ray 06/21/20 16:10 IMPRESSION: Right knee replacement. Electronically Signed: Isaiah Kuhn MD at 16:37 EDT , Service support , Physical Exam Const alert and oriented x3 General Appearance: cooperative Extremity Extremity Narrative: Dressing clean dry and intact compartments soft neurovascular intact able to plantarflex and dorsiflex foot palpable pedal pulses Assessment & Plan Assessment/Plan (1) Total knee replacement status: Status: Acute Code(s): Z96.659 - Presence of unspecified artificial knee joint Qualifiers: Laterality: right Qualified Code(s): Z96.651 - Presence of right artificial knee joint Plan: Plan for rehab today. PT OT weightbearing as toleratedEncourage full knee extension and flexion multip le times a day Resume Coumadin as preoperative dose follow-up with providing physician for INR management and adjustment.Will need followed with labs while in rehab. Follow-up in office 2 weeks for wound check and staple removal Dressing to be left on for 72 hours. Then may remove prior to for shower. Should shower daily at this point with warm water and antibacterial soap but do not submerge in tub or pool for 3 weeks. Call with any questions or concerns
[2020-06-22 07:44] LABS: Anion Gap 4 (5-15); BUN 17 mg/dL (7-18); BUN/Creat Ratio 21.7 RATIO (10-20); Calcium,Total 8.6 mg/dL (8.5-10.1); Chloride 103 mmol/L (98-107); Creatinine, Serum 0.78 mg/dL (0.55-1.02); EST Glomerular Filtration Rate 78 mL/min (>60); Est Glom Filt Rate - Afr Amer 94 mL/min (>60); Estimated Creatinine Clearance 43.18 ml/min; Glucose 161 mg/dL (74-106); Potassium 4.4 mmol/L (3.5-5.1); Sodium Level 137 mmol/L (136-145)
--- NOTE | 2020-06-22 07:48 | PCM.DC ---
Discharge Instructions Outpatient Procedure Reason For Visit: RT TOTAL KNEE W RAPHAEL Diet Discharge Diet: No restrictions Activity Discharge Activity: Use Walker Weight Bearing Status: Weight bearing as tolerated Additional Activity Instructions:: Ice and elevate one week while not ambulating. Ambulation is encouraged. Weightbearing as tolerated. Use assistive devise for stability. Encourage FULL knee extension and flexion 1 time EVERY time you get up and down and MULTIPLE times per day. No showering 72 hours after surgery. Begin showering postop day #3. Remove the dressing prior to shower and gently wash with warm water and antibacterial soap then pat dry and place abdominal pad (or plain gauze) and REMY hose over top. This is to be done daily. Do not submerge for 3 weeks. If not showering daily after the initial 72 hours then you must clean incision and change dressing daily. Do not allow animals near the incision area. Keep clean. Follow anticoagulation recommendations as prescribed. Do not take any NSAIDs while on blood thinner. Do not take any additional narcotic pain medication other than what was prescribed on you surgery day without discussing with physician. Start physical therapy. If you are not currently scheduled for physical therapy or you are unsure of appointment time please call office JESSICA to arrange. Call Dr. Nguyen with any concerns. Needs to have INR followed in rehab and upon dischargeFor Coumadin management. Follow Up Care Please Follow Up With: Jerry Nguyen DO When: 2 weeks Test Results: Test results from this visit will be discussed in further detail at your follow-up appointment, if applicable. Discharge Plan Admission Admit Date/Time: 06/21/20 15:26 Attending Provider: Jerry Nguyen Primary Care Provider: Nevin Sellers Discharge Orders/Prescriptions Prescriptions: New sulfamethoxazole-trimethoprim 1 TABLET tablet 1 tablet PO BID Qty: 10 RF: 0 No Action cholecalciferol (vitamin D3) 1,000 unit tablet 3,000 unit PO QDAY RF: 0 valsartan [Diovan] 320 mg tablet 320 mg PO QHS RF: 0 Januvia 25 mg tablet 25 mg PO DAILY RF: 0 donepezil [Aricept] 5 mg tablet 10 mg PO DAILY RF: 0 latanoprost [Xalatan] 0.005 % drops 1 drp OPHTHALMIC QHS RF: 0 triamcinolone acetonide 0.1 % cream 1 applic TOPICAL PRN PRN (Reason: ITCHING) RF: 0 Zyrtec 10 mg capsule 10 mg PO DAILY PRN (Reason: Allergies) RF: 0 warfarin 3 mg tablet 3 mg PO QDAY Qty: 90 RF: 4 atorvastatin 80 MG tablet 80 mg PO QHS RF: 0 prednisone 5 MG tablet 5 mg PO DAILY RF: 0 amitriptyline 25 MG tablet 25 mg PO QHS RF: 0 duloxetine 60 mg capsule,delayed release(DR/EC) 60 mg PO BID RF: 0 gabapentin 400 MG capsule 1,200 mg PO TID RF: 0 lansoprazole 30 mg capsule,delayed release(DR/EC) 30 mg PO BID RF: 0 esterified estrogens 1.25 mg tablet 1.25 mg PO QHS RF: 0 cyanocobalamin (vitamin B-12) 500 MCG tablet 500 mcg PO DAILY RF: 0 Oxygen, Home [Home Oxygen] 3 lpm NASAL QHS RF: 0 hydroxyzine HCl 50 mg tablet 50 mg PO QHS RF: 0 methylsulfonylmethane 1,000 mg tablet 3,000 mg PO DAILY RF: 0 verapamil 360 mg capsule,ext rel. pellets 24 hr 360 mg PO QHS Qty: 90 RF: 3
[2020-06-22] MEDS: predniSONE 5 MG Tablet PO (08:39)
[2020-06-22] MEDS: Ensure Surgery 237 ML LIQUID PO ×3 (08:41→18:19)
[2020-06-22] MEDS: Cholecalciferol (VIT D3) 25 MCG TABLET (1,000 UNITS) 75 MCG PO (08:45)
[2020-06-22] MEDS: Senna/Docusate Sodium 1 Tablet 2 TABLET PO (08:46)
[2020-06-22] MEDS: LINAGLIPTIN 5 MG TABLET PO (08:46)
[2020-06-22] MEDS: DULoxetine Hcl 60 MG Capsule PO ×2 (08:46→22:03)
[2020-06-22] MEDS: Cyanocobalamin 500 MCG Tablet PO (08:47)
--- NOTE | 2020-06-22 10:22 | CASEMGMT ---
Addendum entered by Kristal Temple 06/22/20 11:12: SW called Chasity at [facility] and faxed referral. SW also notified physician pt is requesting halfway placement. DIMITRIS Lai Original Note: SW met w/pt in room in regard to prior level of care and anticipated discharge plan. PCP: Nevin Sellers Specialists: Dr. Cruz, Dr. Meek(pulmonology), Dr. Cruz(heart) Pharmacy: [facility] in [place] Insurance: [employer]/Medicaid Living arrangements/prior level of function: Pt lives home alone in a one story home with a basement. Pt independent with daily ADLs and does drive. Pt does have aide services through [employer] to assist w/bathing, cleaning, shopping. Pt has home delivered meals as well through [employer] and a [employer]. LNOK: Daughter Ruchi Booth and son in law Joby Booth LW/POA: Pt states she has LW/POA, aware they are not on file, daughter Ruchi is POA HHC/SNF/DME: Pt has [employer] services 3 days per week, M,W,F for 2-3 hours each day. Her assistant case manager is Chasity([phone]). Pt has had home health, has been to both [facility] and [facility] in the past for rehab. Pt has wheeled waker, rollator, straight cane, quad cane, raised toilet seat, shower chair, hand assembler. Plan: SNF. Pt requesting to go to [facility] at discharge. SW offered pt list of SNF in her insurance network with quality and resource data, pt declined list. She states physician is aware pt requesting SNF placement. SW explained will start the precert process with insurance and [facility], and let her know. SW will also contact physician. SW will make referral once PT/OT entered. DIMITRIS Lai
--- NOTE | 2020-06-22 11:00 | PCM.TXEXTCAR ---
Diet 06/21/20 20:41 Diet: Regular - General Wound(s) right harrison: Wound Type: Surgical Incision right knee: Wound Type: Surgical Incision lower back and buttocks: Wound Type: scratches Therapies Weight Bearing: Weight bearing as tolerated Problem/Diagnosis (1) Total knee replacement status: Status: Acute Allergies/Procedures Done in Hospital Allergies iodine Allergy (Verified 06/21/20 12:02) BREATHING ISSUES/PRESSURE IN CHEST CT DYE AND TOPICALLY ALLERGY povidone-iodine [From Betadine] Allergy (Verified 06/21/20 12:02) Rash adhesive tape Adverse Reaction (Severe, Verified 06/21/20 12:02) SKIN BREAKDOWN latex Adverse Reaction (Severe, Verified 06/21/20 12:02) ADVERSE REACTION soap [From Betadine] Adverse Reaction (Verified 06/21/20 12:02) Rash CLORAPREP Allergy (Uncoded 06/21/20 12:02) Itching Type of Care/Length of Stay Estimated LOS: Convalescent Care Less Than 30 days Type of Care Needed: Skilled Rehab Potential: Good Prognosis: Good Additional Orders/Day of Discharge Day of Discharge: 06/22/20 Follow Up Care Please Follow Up With: Jerry Nguyen DO Discharge Plan Admission Admit Date/Time: 06/21/20 15:26 Attending Provider: Jerry Nguyen Primary Care Provider: Nevin Sellers Discharge Orders/Prescriptions Prescriptions: New oxycodone 5 mg capsule 5 - 10 mg PO Q4H PRN PRN (Reason: Pain Score 4-10) 7 Days Qty: 60 RF: 0 Continued cholecalciferol (vitamin D3) 1,000 unit tablet 3,000 unit PO QDAY RF: 0 valsartan [Diovan] 320 mg tablet 320 mg PO QHS RF: 0 Januvia 25 mg tablet 25 mg PO DAILY RF: 0 donepezil [Aricept] 5 mg tablet 10 mg PO DAILY RF: 0 latanoprost [Xalatan] 0.005 % drops 1 drp OPHTHALMIC QHS RF: 0 triamcinolone acetonide 0.1 % cream 1 applic TOPICAL PRN PRN (Reason: ITCHING) RF: 0 Zyrtec 10 mg capsule 10 mg PO DAILY PRN (Reason: Allergies) RF: 0 warfarin 3 mg tablet 3 mg PO QDAY Qty: 90 RF: 4 atorvastatin 80 MG tablet 80 mg PO QHS RF: 0 prednisone 5 MG tablet 5 mg PO DAILY RF: 0 amitriptyline 25 MG tablet 25 mg PO QHS RF: 0 duloxetine 60 mg capsule,delayed release(DR/EC) 60 mg PO BID RF: 0 gabapentin 400 MG capsule 1,200 mg PO TID RF: 0 lansoprazole 30 mg capsule,delayed release(DR/EC) 30 mg PO BID RF: 0 esterified estrogens 1.25 mg tablet 1.25 mg PO QHS RF: 0 cyanocobalamin (vitamin B-12) 500 MCG tablet 500 mcg PO DAILY RF: 0 Oxygen, Home [Home Oxygen] 3 lpm NASAL QHS RF: 0 hydroxyzine HCl 50 mg tablet 50 mg PO QHS RF: 0 methylsulfonylmethane 1,000 mg tablet 3,000 mg PO DAILY RF: 0 verapamil 360 mg capsule,ext rel. pellets 24 hr 360 mg PO QHS Qty: 90 RF: 3 Referrals: Nevin Sellers DO [Primary Care Provider] - Disposition Discharge Orders: Discharge Patient (Routine); Ordered 06/22/20 Ordered By: Dr. Jerry Nguyen
--- NOTE | 2020-06-22 11:10 | PHA.DC.MR ---
Pharmacy Service has performed discharge medication reconciliation for this patient. The patient's discharge medication list was reviewed for discrepancies and discrepancies were resolved. Home Medications amitriptyline 25 mg PO QHS 12/22/14 atorvastatin 80 mg PO QHS 12/22/14 prednisone 5 mg PO DAILY 12/22/14 gabapentin 1,200 mg PO TID 04/22/15 Oxygen, Home [Home Oxygen] 3 lpm NASAL QHS 12/05/15 cyanocobalamin (vitamin B-12) 500 mcg PO DAILY 12/05/15 cholecalciferol (vitamin D3) 25 mcg (1,000 unit) tablet 3,000 unit PO QDAY tab 08/14/17 hydroxyzine HCl 50 mg tablet 50 mg PO QHS 08/14/17 verapamil 360 mg 24 hr capsule,extended release 360 mg PO QHS #90 cap 01/20/18 duloxetine 60 mg capsule,delayed release 60 mg PO BID cap 09/22/18 lansoprazole 30 mg capsule,delayed release 30 mg PO BID cap 09/21/19 sitagliptin 25 mg tablet 25 mg PO DAILY 09/21/19 valsartan 320 mg tablet 320 mg PO QHS 09/21/19 cetirizine 10 mg capsule 10 mg PO DAILY PRN 05/27/20 esterified estrogens 1.25 mg tablet 1.25 mg PO QHS 05/27/20 latanoprost 0.005 % eye drops 1 drp OPHTHALMIC QHS 05/27/20 methylsulfonylmethane 1,000 mg tablet 3,000 mg PO DAILY 05/27/20 triamcinolone acetonide 0.1 % topical cream 1 applic TOPICAL PRN PRN 05/27/20 donepezil 5 mg tablet 10 mg PO DAILY tablet 06/01/20 warfarin 3 mg tablet 3 mg PO QDAY #90 tablet 06/01/20 oxycodone 5 - 10 mg PO Q4H PRN PRN 7 Days #60 cap 06/22/20
--- NOTE | 2020-06-22 12:30 | CASEMGMT ---
Addendum entered by Kristal Temple 06/22/20 16:50: SW let pt know that we have not heard back from [facility] and she will be here until tomorrow. RN will notify the physician. DIMITRIS Lai Addendum entered by Kristal Temple 06/22/20 15:55: SW left Chasity at [facility] a message inquiring about the precert. DIMITRIS Lai Addendum entered by Kristal Temple 06/22/20 14:54: LILLIAN called pt's [employer] Central Office Worker Chasity ([phone]), let her know that plan is for pt to go to [facility] pending precert. DIMITRIS Lai Original Note: SW spoke w/Chasity at [facility], they can take pt, will start precert. SW notified the pt. SW will continue to follow, if precert attained pt would be able to discharge today. DIMITRIS Lai
[2020-06-22] MEDS: oxyCODONE 5 MG Tablet PO (13:56)
--- NOTE | 2020-06-22 14:15 | CASEMGMT ---
CLEO DIAZ NOTE: Intro role of CM to patient and POPE form explained re: Observation status for treatment of right total knee.? Explained hospitalization will be paid per?her insurance policy for Outpatient billing?and condition will continue to be evaluated for In-pt necessity. Also let pt know that [facility] sends paper in the billing packet with their phone number if questions arise. Discussed Pharmacy section of POPE form and self administered medication guideline.? Pt verbalizes understanding and does not have further questions. ? Form signed, copy made and placed in chart, and original given to pt. Eric AHMADI RN, CM ?
[2020-06-22] MEDS: Latanoprost 0.005% 1 Bottle 1 DRP OPHTHALMIC (22:00)
[2020-06-22] MEDS: Verapamil SR 180 MG CAPSULE 360 MG PO (22:00)
[2020-06-22] MEDS: Menthol/Lanolin/Calamine/Znox 113 GM Tube 1 APPLIC TOPICAL (22:01)
[2020-06-22] MEDS: Losartan Potassium 100 MG Tablet PO (22:02)
[2020-06-22] MEDS: Amitriptyline 25 MG Tablet PO (22:03)
[2020-06-22] MEDS: Atorvastatin Calcium 80 MG Tablet PO (22:03)
[2020-06-22] MEDS: hydrOXYzine PAM 25 MG Capsule 50 MG PO (22:04)
[2020-06-23 04:07] VITALS: BP 138/61; PULSE 103; RESP 18; TEMP 37; O2SAT 97
[2020-06-23] MEDS: Gabapentin 400 MG Capsule 1200 MG PO ×3 (05:44→21:09)
[2020-06-23] MEDS: Acetaminophen 500 MG Tablet 1000 MG PO ×3 (05:45→21:10)
[2020-06-23 06:31] LABS: Hematocrit 36.5 % (37-47); Hemoglobin 11.5 g/dL (12.0-15.0); Mean Corp Hgb Conc 31.5 g/dL (32-36); Mean Corpuscular Hgb 29.8 pg (27.0-32.0); Mean Corpuscular Volume 94.6 fL (81-99); Mean Platelet Vol. 9.5 fl (6.2-12.0); Platelet Count 307 K/mm3 (150-450); RBC Distribution Width CV 13.7 % (11.6-14.6); RBC Distribution Width SD 46.8 fl (35.1-43.9); Red Blood Count 3.86 M/mm3 (4.2-5.4); White Blood Count 18.4 K/mm3 (4.4-11.0)
[2020-06-23] MEDS: Pantoprazole Sodium 40 MG Tablet PO ×2 (07:00→21:09)
[2020-06-23] MEDS: Donepezil HCl 10 MG Tablet PO (07:00)
[2020-06-23 07:57] VITALS: O2SAT 94
[2020-06-23 09:45] VITALS: BP 140/52; PULSE 94; RESP 18; TEMP 36.8; O2SAT 96
[2020-06-23] MEDS: DULoxetine Hcl 60 MG Capsule PO ×2 (09:55→21:09)
[2020-06-23] MEDS: Cyanocobalamin 500 MCG Tablet PO (09:55)
[2020-06-23] MEDS: LINAGLIPTIN 5 MG TABLET PO (09:55)
[2020-06-23] MEDS: Cholecalciferol (VIT D3) 25 MCG TABLET (1,000 UNITS) 75 MCG PO (09:55)
[2020-06-23] MEDS: oxyCODONE 5 MG Tablet PO ×2 (09:56→15:44)
[2020-06-23] MEDS: predniSONE 5 MG Tablet PO (09:56)
[2020-06-23] MEDS: Menthol/Lanolin/Calamine/Znox 113 GM Tube 1 APPLIC TOPICAL ×2 (09:58→21:11)
--- NOTE | 2020-06-23 11:52 | PCM.PN.ORT ---
Subjective Subjective: Patient seated in chair upon entering the room. She states that she feels she is doing well. Pain is well controlled at this time staying 4 or 5. She states that she has been already trying to work on motion herself. She denies numbness/tingling, calf pains, gross motor dysfunction or other symptoms. Objective Data Objective Data Vital Signs: Vital Signs Temp Pulse Resp BP Pulse Ox 98.6 F 103 H 18 138/61 H 94 06/23/20 04:07 06/23/20 04:07 06/23/20 04:07 06/23/20 04:07 06/23/20 07:57 Oxygen Flow Rate (L/min) 4 Oxygen Delivery Method Room Air Weight: 191 lb 2.252 oz Body Mass Index (BMI) 34.9 Intake & Output: Intake and Output for Last 24 Hours 06/21/20 06/22/20 06/23/20 23:59 23:59 23:59 Intake Total 2085 / 2085 4138.33 / 4338.33 200 / 200 Output Total 900 / 900 600 / 600 Balance 1185 / 1185 3538.33 / 3738.33 200 / 200 Lab / Micro Data Result Diagrams: 06/24/20 06:00 06/22/20 06:25 Labs: Laboratory Results - last 24 hr 06/23/20 06:10 WBC 18.4 H RBC 3.86 L Hgb 11.5 L Hct 36.5 L MCV 94.6 MCH 29.8 MCHC 31.5 L RDW Std Deviation 46.8 H RDW Coeff of Tia 13.7 Plt Count 307 MPV 9.5 Micro: Microbiology 06/22/20 12:00 Interface Orders SARS-CoV-2 Antigen (Rapid) - Final 06/03/20 10:56 Swab (Method) Nasal Screen MRSA/MSSA - Final Physical Exam Cardio Peripheral Pulses: dorsalis pedis pulses present Extremity General Extremity: edema right (lower extremity); Negative for cyanosis, deformity or mottling Peripheral Pulses: Yes dorsalis pedis pulses present Right Lower Extremity: knee joint inspection (generalized ecchymosis noted around occlusive dressing (more prominant laterally)), palpation (Minor tenderness on palpation) and neurovascular exam (intact sensation to light touch throughout. intact motor function knee, ankle, toes. ) and foot and digits Assessment & Plan Assessment/Plan (1) Other acute postprocedural pain: Status: Acute Code(s): G89.18 - Other acute postprocedural pain (2) Total knee replacement status: Status: Acute Code(s): Z96.659 - Presence of unspecified artificial knee joint Qualifiers: Laterality: right Qualified Code(s): Z96.651 - Presence of right artificial knee joint Plan: PAtient seen today day 2 status post right total knee arthroplasty. At this time patient has no concerns or complaints. Pains are currently well controlled and she was able to get some sleep last evening. She does have compression stalking on today which she needs to continue. Occlusive dressing remains intact without saturation and she should keep this on for another 48 hours (remove 72 hours post-op prior to showering). She will need to f/u for her anticoagulation therapy checks. She will need to continue PT and we discussed her doing some active ROM on her own as well. She can weight bear as tolerated with assistive device and proper assistance. notify of any concerns or complaints in the mean time (see D/c instructions).
--- NOTE | 2020-06-23 12:58 | CASEMGMT ---
Addendum entered by Betsy Coronado 06/23/20 15:52: LILLIAN placed a call to Chasity at [facility] to inquire about pre-cert, pre-cert is still pending. LILLIAN provided Chasity with [facility] number in the event pre-cert is obtained. LILLIAN placed green sheet, transport forms, COVID tool/test and PAS/RR on pt's chart in the event pre-cert is obtained. Plan: [facility] pending pre-cert CHAYA Talley Addendum entered by Betsy Coronado 06/23/20 15:43: LILLIAN updated pt that pre-cert is still pending. Original Note: Social Work Note SW recieved message from Chasity at [facility] stating pre-cert is still pending. Plan: [facility] pending pre-cert CHAYA Talley
[2020-06-23 15:50] VITALS: BP 135/64; PULSE 97; RESP 18; TEMP 37; O2SAT 94
[2020-06-23] MEDS: Amitriptyline 25 MG Tablet PO (21:09)
[2020-06-23] MEDS: Atorvastatin Calcium 80 MG Tablet PO (21:09)
[2020-06-23] MEDS: Losartan Potassium 100 MG Tablet PO (21:09)
[2020-06-23] MEDS: Latanoprost 0.005% 1 Bottle 1 DRP OPHTHALMIC (21:10)
[2020-06-23] MEDS: Verapamil SR 180 MG CAPSULE 360 MG PO (21:11)
[2020-06-23 21:16] VITALS: BP 133/88; PULSE 103; RESP 18; TEMP 36.7; O2SAT 96
[2020-06-24] MEDS: oxyCODONE 5 MG Tablet PO ×2 (02:30→08:34)
[2020-06-24 02:35] VITALS: BP 151/78; PULSE 91; RESP 18; TEMP 36.3; O2SAT 100
[2020-06-24] MEDS: Acetaminophen 500 MG Tablet 1000 MG PO (06:09)
[2020-06-24] MEDS: Pantoprazole Sodium 40 MG Tablet PO (06:10)
[2020-06-24] MEDS: Gabapentin 400 MG Capsule 1200 MG PO (06:10)
[2020-06-24 06:47] LABS: Hematocrit 33.2 % (37-47); Hemoglobin 10.3 g/dL (12.0-15.0); Mean Corpuscular Hgb 29.3 pg (27.0-32.0); Mean Corpuscular Volume 94.3 fL (81-99); Mean Platelet Vol. 9.6 fl (6.2-12.0); Platelet Count 263 K/mm3 (150-450); RBC Distribution Width CV 13.9 % (11.6-14.6); RBC Distribution Width SD 47.9 fl (35.1-43.9); Red Blood Count 3.52 M/mm3 (4.2-5.4); White Blood Count 12.3 K/mm3 (4.4-11.0)
[2020-06-24 08:00] VITALS: BP 133/76; PULSE 94; RESP 16; TEMP 36.3; O2SAT 93
[2020-06-24 08:14] VITALS: O2SAT 91
[2020-06-24] MEDS: Ensure Surgery 237 ML LIQUID PO (08:27)
[2020-06-24] MEDS: Donepezil HCl 10 MG Tablet PO (08:28)
[2020-06-24] MEDS: DULoxetine Hcl 60 MG Capsule PO (08:28)
[2020-06-24] MEDS: predniSONE 5 MG Tablet PO (08:28)
[2020-06-24] MEDS: Cholecalciferol (VIT D3) 25 MCG TABLET (1,000 UNITS) 75 MCG PO (08:29)
[2020-06-24] MEDS: Cyanocobalamin 500 MCG Tablet PO (08:29)
[2020-06-24] MEDS: LINAGLIPTIN 5 MG TABLET PO (08:29)
--- NOTE | 2020-06-24 09:22 | CASEMGMT ---
Social Work Note LILLIAN received call from admissions at [facility] stating pre-cert has been obtained. SW reviewed paperwork, medication list needs signed. LILLIAN placed a call to physician's office and left message that medication list will need to be signed. LILLIAN faxed medication list to physician's office for physician to sign. LILLIAN spoke with RN, pt can transport via wheelchair van. SW to arrange transportation once discharge paperwork is completed. SW to fax discharge paperwork once completed. Plan: [facility] skilled today Betsy Coronado KILN PULLER, GENERAL II FARMWORKER
--- NOTE | 2020-06-24 10:50 | CASEMGMT ---
Addendum entered by Priti Hanley 06/24/20 10:59: LILLIAN updated RN of patient's discharge plan. LILLIAN Coronado called [facility] and advised that patient will be discharged at 12:00noon today. LILLIAN Coronado spoke to Renetta at [facility] to advise of Release time. Original Note: LILLIAN Note: LILLIAN faxed all MD order, [facility] paperwork, and prescriptions to [facility] for continuity of care. Copy of all SNF paperwork placed in chart. LILLIAN Coronado contacted [facility] via on line scheduling system and scheduled transportation for patient. [facility] will be at [facility] at 12PM. LILLIAN updated patient that transportation is scheduled for 12:00noon. No concerns or issues voiced. Patient voiced agreement with plan. Plan: Patient will go to [facility] for skilled care. [facility] will transport. Scheduled for 12:00noon.
--- NOTE | 2020-06-24 10:51 | CASEMGMT ---
Social Work Note Pt is being discharged today to [facility]. SW placed a call to pt's JOE Gaspar and updated her on discharge to [facility] today. Betsy Coronado SPORTS CENTRE MANAGER, [employer]
--- NOTE | 2020-06-24 11:21 | PHA.DC.MR ---
Pharmacy Service has performed discharge medication reconciliation for this patient upon transfer to [facility]. Home Medications amitriptyline 25 mg PO QHS 12/22/14 atorvastatin 80 mg PO QHS 12/22/14 prednisone 5 mg PO DAILY 12/22/14 gabapentin 1,200 mg PO TID 04/22/15 Oxygen, Home [Home Oxygen] 3 lpm NASAL QHS 12/05/15 cyanocobalamin (vitamin B-12) 500 mcg PO DAILY 12/05/15 cholecalciferol (vitamin D3) 25 mcg (1,000 unit) tablet 3,000 unit PO QDAY tab 08/14/17 hydroxyzine HCl 50 mg tablet 50 mg PO QHS 08/14/17 verapamil 360 mg 24 hr capsule,extended release 360 mg PO QHS #90 cap 01/20/18 duloxetine 60 mg capsule,delayed release 60 mg PO BID cap 09/22/18 lansoprazole 30 mg capsule,delayed release 30 mg PO BID cap 09/21/19 sitagliptin 25 mg tablet 25 mg PO DAILY 09/21/19 valsartan 320 mg tablet 320 mg PO QHS 09/21/19 cetirizine 10 mg capsule 10 mg PO DAILY PRN 05/27/20 esterified estrogens 1.25 mg tablet 1.25 mg PO QHS 05/27/20 latanoprost 0.005 % eye drops 1 drp OPHTHALMIC QHS 05/27/20 methylsulfonylmethane 1,000 mg tablet 3,000 mg PO DAILY 05/27/20 triamcinolone acetonide 0.1 % topical cream 1 applic TOPICAL PRN PRN 05/27/20 donepezil 5 mg tablet 10 mg PO DAILY tablet 06/01/20 warfarin 3 mg tablet 3 mg PO QDAY #90 tablet 06/01/20 oxycodone See Rx Instructions .ROUTE .COMPLEX PRN 5 Days #60 tab 06/22/20 The patient's discharge medication list was reviewed for discrepancies and discrepancies were resolved.
--- NOTE | 2020-06-24 11:52 | PCM.PN.ORT ---
Subjective Subjective: PAtient seens today at bedside while she was resting in her chair. PAtient states that she is doing a lot better today. She states that her swelling is better and pains are improved. She states that she has been working on her own and PT was really pushing her. She sttaes that she is ready to go home and feels comfortable doing so. No other complaints today. Objective Data Objective Data Vital Signs: Vital Signs Temp Pulse Resp BP Pulse Ox 97.3 F L 94 16 133/76 H 91 06/24/20 08:00 06/24/20 08:00 06/24/20 08:00 06/24/20 08:00 06/24/20 08:14 Oxygen Flow Rate (L/min) 4 Oxygen Delivery Method Room Air Weight: 191 lb 2.252 oz Body Mass Index (BMI) 34.9 Intake & Output: Intake and Output for Last 24 Hours 06/22/20 06/23/20 06/24/20 23:59 23:59 23:59 Intake Total 4138.33 / 4338.33 800 / 800 Output Total 600 / 600 Balance 3538.33 / 3738.33 800 / 800 Lab / Micro Data Result Diagrams: 06/24/20 06:00 06/22/20 06:25 Labs: Laboratory Results - last 24 hr 06/24/20 06:00 WBC 12.3 H RBC 3.52 L Hgb 10.3 L Hct 33.2 L MCV 94.3 MCH 29.3 MCHC 31.0 L RDW Std Deviation 47.9 H RDW Coeff of Tia 13.9 Plt Count 263 MPV 9.6 Micro: Microbiology 06/22/20 12:00 Interface Orders SARS-CoV-2 Antigen (Rapid) - Final 06/03/20 10:56 Swab (Method) Nasal Screen MRSA/MSSA - Final Physical Exam Extremity Right Lower Extremity: knee joint inspection (Occluive dressig sill in plae. Still moderate generalized ecchymosis noted more prominant laterally. No surrounding erythema. ), palpation (No tenderness around the incision site. No pains over areas of ecchymsis. Lower extremity compartments are soft. She has no calf tenderness. ), ROM (Extension almst to neutral and flexion to approximately 100 degrees. ) and neurovascular exam (No gross motor dysfunction (normal ankle plantar and dorsiflexion as well as movements of the toes.)) Assessment & Plan Assessment/Plan (1) Other acute postprocedural pain: Status: Acute Code(s): G89.18 - Other acute postprocedural pain (2) Total knee replacement status: Status: Acute Code(s): Z96.659 - Presence of unspecified artificial knee joint Qualifiers: Laterality: right Qualified Code(s): Z96.651 - Presence of right artificial knee joint Plan: Patient doing well day 2 post-op right TKA. Her pains are improving as is her swelling. She has some generalized ecchymosis at the same time no signs of infection around the occlusive dressing. Her compartments are soft without any calf tenderness. Keep occlussive dressing in place until tomorrow before removing and then cleansing. She Can then cleanse daily with soap and water and change dressing daily. Anti-coagulation medication to be followed per PCP or hospitalist at [facility]. She should continue compression stalkings. Weight bearing as tolerated with assistive device and appropriate assistance.
== END 2020-06-24 12:13 | disposition skilled nursing facility (03) ==
LOC: SDC 16:12 → MS3 06-22 08:01
PROVIDERS: Anesthesiology; Admitting Provider Orthopaedic Surgery; PCP Family Medicine; Referring Provider Orthopaedic Surgery; Visit Provider Orthopaedic Surgery
PROC: 0SRC0JZ Replacement of Right Knee Joint with Synthetic Substitute, Open Approach (ICD-10-PCS; CPT 27447; principal; 2020-06-21 12:45)
DX: M17.11 Unilateral primary osteoarthritis, right knee (principal); I10 Essential (primary) hypertension; G47.30 Sleep apnea, unspecified; J45.909 Unspecified asthma, uncomplicated; G25.81 Restless legs syndrome; F41.9 Anxiety disorder, unspecified; F32.9 Major depressive disorder, single episode, unspecified; I49.1 Atrial premature depolarization; I49.3 Ventricular premature depolarization; E78.5 Hyperlipidemia, unspecified; I48.20 Chronic atrial fibrillation, unspecified; K58.9 Irritable bowel syndrome, unspecified; G62.9 Polyneuropathy, unspecified; R73.03 Prediabetes; M79.7 Fibromyalgia; K21.9 Gastro-esophageal reflux disease without esophagitis; Z79.899 Other long term (current) drug therapy; Z99.81 Dependence on supplemental oxygen; Z79.01 Long term (current) use of anticoagulants; Z79.52 Long term (current) use of systemic steroids; Z79.84 Long term (current) use of oral hypoglycemic drugs
CPT/HCPCS: 01402; 27447; 64447; S2900; 36415; 36416; 73560; 80048; 81001; 82962; 82985; 83735; 85025; 85027; 85610; 85730; 86850; 86900; 86901; 87081; 87426; 96361; 96365; 96366; 96375; 97110; 97162; 97166; 97530; 97535; 99218; 99251; C1776; J7120; A4216; G0378; G0379; G0463; J0702; J3490

== ENCOUNTER 2020-08-16 05:28 | Day surgery (SDC) | payer MEDICARE, MEDICAID, SELFPAY ==
[2020-06-21 18:08] VITALS: BMI 34.9
[2020-08-16] VITALS (7 sets, daily range): BP systolic 136–161; BP diastolic 81–92; PULSE 85–97; RESP 16; TEMP 35.9–36.6; O2SAT 95–99; BMI 35.0
[2020-08-16] MEDS: Lactated Ringers 1,000 ML 100 ML IV (06:32)
[2020-08-16] MEDS: Cefazolin 2 GM in 0.9% Normal Saline 100 ML IV (07:15)
--- NOTE | 2020-08-16 07:17 | HP.PCM_ITS ---
History and Physical Date of Admission: 08/16/20 [id number]: NOEMI LYON [facility] #:[id number]:[id number] Provider:Gayle Coates/Sex: 69/F Location:[place]:Signed Intake Intake Visit Reasons: 6 weeks post op Allergies iodine Allergy (Verified 06/21/20 12:02) BREATHING ISSUES/PRESSURE IN CHEST povidone-iodine [From Betadine] Allergy (Verified 06/21/20 12:02) Rash adhesive tape Adverse Reaction (Severe, Verified 06/21/20 12:02) SKIN BREAKDOWN latex Adverse Reaction (Severe, Verified 06/21/20 12:02) ADVERSE REACTION soap [From Betadine] Adverse Reaction (Verified 06/21/20 12:02) Rash CLORAPREP Allergy (Uncoded 06/21/20 12:02) Itching Medications amitriptyline 25 mg PO QHS 12/22/14 [History Confirmed 08/05/20] atorvastatin 80 mg PO QHS 12/22/14 [History Confirmed 08/05/20] prednisone 5 mg PO DAILY 12/22/14 [History Confirmed 08/05/20] gabapentin 1,200 mg PO TID 04/22/15 [History Confirmed 08/05/20] Oxygen, Home [Home Oxygen] 3 lpm NASAL QHS 12/05/15 [History Confirmed 08/05/20] cyanocobalamin (vitamin B-12) 500 mcg PO DAILY 12/05/15 [History Confirmed 08/05/20] cholecalciferol (vitamin D3) 25 mcg (1,000 unit) tablet 3,000 unit PO QDAY tab 08/14/17 [History Confirmed 08/05/20] hydroxyzine HCl 50 mg tablet 50 mg PO QHS 08/14/17 [History Confirmed 08/05/20] verapamil 360 mg 24 hr capsule,extended release 360 mg PO QHS #90 cap 01/20/18 [Rx Confirmed 08/05/20] duloxetine 60 mg capsule,delayed release 60 mg PO BID cap 09/22/18 [History Confirmed 08/05/20] lansoprazole 30 mg capsule,delayed release 30 mg PO BID cap 09/21/19 [History Confirmed 08/05/20] sitagliptin 25 mg tablet 25 mg PO DAILY 09/21/19 [History Confirmed 08/05/20] valsartan 320 mg tablet 320 mg PO QHS 09/21/19 [History Confirmed 08/05/20] cetirizine 10 mg capsule 10 mg PO DAILY PRN 05/27/20 [History Confirmed 08/05/20] esterified estrogens 1.25 mg tablet 1.25 mg PO QHS 05/27/20 [History Confirmed 08/05/20] latanoprost 0.005 % eye drops 1 drp OPHTHALMIC QHS 05/27/20 [History Confirmed 08/05/20] methylsulfonylmethane 1,000 mg tablet 3,000 mg PO DAILY 05/27/20 [History Confirmed 08/05/20] triamcinolone acetonide 0.1 % topical cream 1 applic TOPICAL PRN PRN 05/27/20 [History Confirmed 08/05/20] donepezil 5 mg tablet 10 mg PO DAILY tablet 06/01/20 [History Confirmed 08/05/20] warfarin 3 mg tablet 3 mg PO QDAY #90 tablet 06/01/20 [Rx Confirmed 08/05/20] oxycodone See Rx Instructions .ROUTE .COMPLEX PRN 5 Days #60 tab 06/22/20 [Rx Confirmed 08/05/20] PFS Medical History (Updated 08/05/20 @ 11:16 by Jane Morales) Arthritis Back problem Bleeding disorder Bone fracture Breast lump Cataract Chronic atrial fibrillation Chronic fatigue Degenerative disc disease Depression Diabetes Essential hypertension Fibromyalgia Gastrointestinal problem GERD (gastroesophageal reflux disease) Glaucoma Hives Hyperlipidemia IBS (irritable bowel syndrome) intermediate current use of anticoagulant Neuropathy Osteoarthritis Osteopenia Panic attacks Paroxysmal atrial fibrillation Pituitary tumor Pneumonia Premature atrial contractions Premature ventricular contraction PTSD (post-traumatic stress disorder) Seasonal allergies Seizure disorder, secondary Sleep apnea Tachycardia Surgical History (Updated 06/22/20 @ 07:[address] Jerry Nguyen, DO) excision soft tissue mass H/O tubal ligation History of cholecystectomy History of hysterectomy History of knee replacement procedure of left knee History of knee surgery History of lumpectomy of left breast History of repair of rotator cuff History of surgical removal of skin lesion History of tonsillectomy History of total hysterectomy History of total left knee replacement History of total right knee replacement History of tubal ligation S/P breast lumpectomy S/P cholecystectomy S/P left knee arthroscopy S/P left rotator cuff repair S/P rotator cuff repair S/P tonsillectomy Family History Father CAD (coronary artery disease) Alzheimer disease Anemia Anxiety Arthritis Bleeding disorder Depression (emotion) Heart disease High cholesterol Melanoma Respiratory disease Skin cancer ULCER DISEASE Mother Diabetes Arthritis Heart disease Hypertension Osteoporosis Daughter Hormonal disorder Brother Anxiety Asthma Bleeding disorder Depression (emotion) Heart disease Sister Cancer Lung cancer Grandfather CVA (cerebral vascular accident) Grandmother CVA (cerebral vascular accident) Social History (Updated 06/03/20 @ 10:[address] Jerry Nguyen, ) household members: none housing: house pets and animals: No Smoking Status: Never smoker alcohol intake: never substance use type: does not use what type of physical activity do you participate in: additional details: stretching, marching while sitting seatbelt use: always do you feel safe at home: Yes additional social history: DOES NOT USE ASPIRIN DOES NOT USE IBUPROFEN HPI 6 weeks post op Details: Parts of this documentation were recorded by a scribe, this documentation accurately reflects the service provided and the decisions made by me, Dr. Jerry Nguyen, 08/05/20 0752. NOEMI LYON is a 69 year old F here today for 6 week post op from right TKA. She states that she was in a care facility until 1 week ago. She was doing PT at the rehab facility and she has been home without PT for 1 week she states she was waiting to get a PT script until today. She is lacking with full extension. She has flexion to about 100. [place] [facility] arthralgias, Reports joint swelling, Reports limited range of motion, Denies numbness, Denies radiating pain into limb and Denies tingling Neuro No numbness and No tingling Ortho Exam General General: Yes no acute distress Neurologic: Yes alert and Yes oriented x3 Psychologic: Yes reasonable and appropriate Right Knee Skin/Wound: Yes healing, No erythema, No ecchymosis and Yes swelling Homans Sign: No 1+: Effusion Knee ROM: No ROM-Extension -20 to 0 (lacking 20) and No ROM-Flexion 0-140 (110) Coding Level of Care Code Global Post Op Diagnoses Orthopedic aftercare Z47.89 Assessment and Plan Assessment and Plan (1) Orthopedic aftercare: Status: Acute Orders: Orders: Knee 3 Views Today Z47.89 Plan - Dr. Jerry Nguyen, DO: Patient educated that she needs to start PT and work on gaining full extension at this time. PT script given today. PAtient educated that another treatment option is to have a BRIAN for her lack in extension. Follow up in 4 weeks post op or sooner if pain, swelling, numbness or associated symptoms, or concerns develop. All questions answered. Patient in agreement of plan. 08/05/20 1144<Electronically signed by Jerry Nguyen DO>Date Jerry Nguyen DO Cosigner Signature:Date (if applicable) CC: ~I have re-examined the patient. There are no clinical changes since date of exam
--- NOTE | 2020-08-16 07:18 | PCM.DC ---
Discharge Instructions Diet Discharge Diet: No restrictions Activity Keep extremity elevated above heart level: Operative Extremity Dressing / Incision Additional Dressing/Incision Instructions:: Encourage full knee flexion and extension regularly. Start physical therapy immediately. May shower and return to activities as normal. Keep pain controlled with medications as discussed with Dr. Nguyen in order to keep full range of motion. Ice and elevate next 72 hours. Follow-up with Dr. Nguyen and call with any questions or concerns. Follow Up Care Please Follow Up With: Jerry Nguyen DO When: 4 Weeks Test Results: Test results from this visit will be discussed in further detail at your follow-up appointment, if applicable. Discharge Plan Admission Attending Provider: Jerry Nguyen Primary Care Provider: Nevin Sellers Discharge Orders/Prescriptions Prescriptions: New oxycodone 5 mg tablet 5 mg PO Q4H PRN (Reason: pain) 7 Days Qty: 60 RF: 0 Continued cholecalciferol (vitamin D3) 1,000 unit tablet 3,000 unit PO QDAY RF: 0 valsartan [Diovan] 320 mg tablet 320 mg PO QHS RF: 0 Januvia 25 mg tablet 25 mg PO DAILY RF: 0 donepezil [Aricept] 5 mg tablet 10 mg PO DAILY RF: 0 latanoprost [Xalatan] 0.005 % drops 1 drp OPHTHALMIC QHS RF: 0 triamcinolone acetonide 0.1 % cream 1 applic TOPICAL PRN PRN (Reason: ITCHING) RF: 0 Zyrtec 10 mg capsule 10 mg PO DAILY PRN (Reason: Allergies) RF: 0 warfarin 3 mg tablet 3 mg PO QDAY Qty: 90 RF: 4 atorvastatin 80 MG tablet 80 mg PO QHS RF: 0 prednisone 5 MG tablet 5 mg PO DAILY RF: 0 amitriptyline 25 MG tablet 25 mg PO QHS RF: 0 duloxetine 60 mg capsule,delayed release(DR/EC) 60 mg PO BID RF: 0 gabapentin 400 MG capsule 1,200 mg PO TID RF: 0 lansoprazole 30 mg capsule,delayed release(DR/EC) 30 mg PO BID RF: 0 esterified estrogens 1.25 mg tablet 1.25 mg PO QHS RF: 0 cyanocobalamin (vitamin B-12) 500 MCG tablet 500 mcg PO DAILY RF: 0 hydroxyzine HCl 50 mg tablet 50 mg PO QHS RF: 0 methylsulfonylmethane 1,000 mg tablet 3,000 mg PO DAILY RF: 0 verapamil 360 mg capsule,ext rel. pellets 24 hr 360 mg PO QHS Qty: 90 RF: 3 Discontinued oxycodone 5 mg tablet See Rx Instructions .ROUTE .COMPLEX PRN (Reason: pain) 5 Days Qty: 60 RF: 0 Referrals / Follow Up: Nevin Sellers DO [Primary Care Provider] - Disposition Disposition (needs filled in before D/C Order can be placed): Home, Self Care
[2020-08-16] MEDS: Bupiv/Epi 0.25% 30 ML Vial (07:25)
[2020-08-16] MEDS: MethylPREDNISolone Acetate 40 MG/ML Vial IM (07:25)
--- NOTE | 2020-08-16 07:32 | OP.PCM_ITS ---
Report of Operation Date of Procedure: 08/16/20 Surgery/Procedure Performed:: Preoperative diagnosis: Arthrofibrosis [Right] kn ee Postoperative diagnosis: Same Procedure: Manipulation under anesthesia Aspiration and injection with intra- articular steroid injection] Anesthesia: General EBL: None Complications: None Condition: Able to PACU Indication for procedure: This is a[69-year-old female] who underwent total knee arthroplasty approximately 6 weeks ago who is failed to gain her range of motion wish to undergo an elective manipulation under anesthesia to increase range of motion. risk benefits and alternatives were reviewed including risk of bleeding infection nerve, artery, bone, tissue damage, blood clot need for further surgery and continued pain. Procedure: Patient was met in the preoperative holding area once again the operative extremity was identified by both patient and physician and was marked. Patient was brought back to the operating room anesthesia was started. A timeout was called into the proper patient procedure and extremity were being contemplated. The pre-operative range of motion was [lacking 15 degrees of] extension and achieving [115 ]degrees flexion. After patient was adequately anesthetized extension manipulation was performed followed by patellar mobili zation followed by gradual flexion scar tissue was palpated being released with no concerning signs for tendon rupture or fracture. Postoperative range of motion was much improved with [near full ]extension and [135] degrees of flexion. Following the manipulation using sterile technique from the superior lateral position anAspiration of 10 cc of serosanguineous fluid And intra-articular injection with 40 mg of depomedrol and 8 cc 0.25%marcaine with epi was injected. 4 x 4 and Young wrap applied
[2020-08-16] MEDS: oxyCODONE 5 MG Tablet PO (08:40)
== END 2020-08-16 09:35 | disposition home or self-care (01) ==
LOC: SDC 05:28 → AC 05:31 → ACINP 06:19 → AC 06:20
PROVIDERS: PCP Family Medicine; Referring Provider Orthopaedic Surgery; Visit Provider Orthopaedic Surgery
PROC: (CPT 27570; principal; 2020-08-16 07:10)
DX: Z47.89 Encounter for other orthopedic aftercare (principal); M24.661 Ankylosis, right knee; I48.0 Paroxysmal atrial fibrillation; E11.9 Type 2 diabetes mellitus without complications; I10 Essential (primary) hypertension; E78.5 Hyperlipidemia, unspecified; M79.7 Fibromyalgia; K58.9 Irritable bowel syndrome, unspecified; M85.80 Other specified disorders of bone density and structure, unspecified site; K21.9 Gastro-esophageal reflux disease without esophagitis; F32.9 Major depressive disorder, single episode, unspecified; Z79.84 Long term (current) use of oral hypoglycemic drugs; Z79.01 Long term (current) use of anticoagulants; Z79.52 Long term (current) use of systemic steroids; Z79.899 Other long term (current) drug therapy; Z96.653 Presence of artificial knee joint, bilateral
CPT/HCPCS: 01380; 20610; 27570; J7120

== ENCOUNTER → 2023-04-17 | Outpatient (CLI) | payer MEDICARE, MEDICAID, SELFPAY ==
[2023-04-17 16:40] LABS: Absolute Neutrophil Count 9.6 X10^3/uL (2.0-7.7); Basophil# 0.05 X10^3/uL; Basophil% 0.4 % (0-1); Eosinophil# 0.03 X10^3/uL; Eosinophils% 0.3 % (0-5); Hematocrit 43.2 % (37-47); Hemoglobin 13.7 g/dL (12.0-15.0); Lymphocyte % 9.5 % (19-41); Mean Corp Hgb Conc 31.7 g/dL (32-36); Mean Corpuscular Volume 91.5 fL (81-99); Mean Platelet Vol. 9.8 fl (6.2-12.0); Monocyte# 0.74 X10^3/uL; Monocyte% 6.4 % (0-10); NRBC Flagged by Analyzer 0 % (0-5); Neutrophil # 9.57 X10^3/uL (2.7-7.7); Neutrophil % 82.5 % (47-70); Platelet Count 305 K/mm3 (150-450); RBC Distribution Width CV 13.7 % (11.6-14.6); RBC Distribution Width SD 46.5 fl (35.1-43.9); Red Blood Count 4.72 M/mm3 (4.2-5.4); White Blood Count 11.6 K/mm3 (4.4-11.0)
[2023-04-17 17:03] LABS: ALB/GLOB Ratio 1.1 RATIO (0.9-2.4); AST(SGOT) 16 U/L (15-37); Alanine Aminotransfer ALT/SGPT 30 U/L (13-56); Albumin, Serum 3.5 g/dL (3.2-5.0); Alkaline Phosphatase 77 U/L (45-117); Anion Gap 7 (5-15); BUN 15 mg/dL (7-18); BUN/Creat Ratio 14.2 RATIO (10-20); Calcium,Total 8.8 mg/dL (8.5-10.1); Chloride 105 mmol/L (98-107); Cholesterol 171 mg/dL (200); Creatinine, Serum 1.06 mg/dL (0.55-1.02); EST Glomerular Filtration Rate 54 mL/min (>60); Est Glom Filt Rate - Afr Amer 66 mL/min (>60); Globulin 3.2 g/dL (2.2-4.2); Glucose 185 mg/dL (74-106); High Density Lipoprotein 75 mg/dL; Potassium 4.1 mmol/L (3.5-5.1); Protein, Total 6.7 g/dL (6.4-8.2); Sodium Level 138 mmol/L (136-145); T4 Free Direct 0.84 ng/dL (0.76-1.46); Thyroid Stim Hormone (TSH) 0.86 uIU/mL (0.358-3.74); Triglycerides 217 mg/dL; Very Low Density Lipoprotein 43 mg/dL (5-40)
--- OUTSIDE RECORDS SUMMARY | 2023-04-17 19:08 | XMS RPT_ITS | CCD ---
Author Name Unknown Address [address] [place] [address] Organization [facility] Care Team Providers Care Master Automotive Glass Technician Name Role Phone Ebony Hadley Nehemiah Unavailable Unavailable Primary Care Provider Unavailpanfilo e Nevin Rowe DO Unavailable [phone] Nevin Rowe DO Primary Care Provider Yue Dey MD Unavailable Ruchi Reyes APRN.CNP Primary Care Provider ANDI CAPONE Attending Unavailable ANDI CAPONE Referring Unavailable RUCHI REYES Primary Care Unavailable YUE DEY Referring Unavailable RUCHI REYES Primary Care Unavailable YUE DEY Attending Unavailable NEVIN ROWE DO Consulting Unavailable RUCHI REYES CNP Primary Care Unavailable RUCHI REYES CNP Admitting Unavailable RUCHI REYES CNP Attending Unavailable PROVIDER, UNKNOWN Consulting Unavailable PROVIDER, UNKNOWN Consulting Unavailable NEVIN ROWE DO Consulting Unavailable YUE DEY MD Primary Care Unavailable YUE DEY MD Admitting Unavailable YUE DEY MD Attending Unavailable PROVIDER, UNKNOWN Consulting Unavailable PROVIDER, UNKNOWN Consulting Unavailable NEVIN ROWE DO Consulting Unavailable YUE DEY MD Primary Care Unavailable YUE DEY MD Admitting Unavailable YUE DEY MD Attending Unavailable PROVIDER, UNKNOWN Consulting Unavailable PROVIDER, UNKNOWN Consulting Unavailable NEVIN ROWE DO Consulting Unavailable RUCHI REYES CNP Primary Care Unavailable RUCHI REYES CNP Admitting Unavailable RUCHI REYES CNP Attending Unavailable PROVIDER, UNKNOWN Consulting Unavailable PROVIDER, UNKNOWN Consulting Unavailable NEVIN ROWE DO Consulting Unavailable NEVIN ROWE DO Admitting Unavailable FRAKOWSKI, NEVIN DO Attending Unavailable FRAKOWSKI, NEVIN DO Primary Care Unavailable PROVIDER, UNKNOWN Consulting Unavailable PROVIDER, UNKNOWN Consulting Unavailable FRAKOWSKI, NEVIN DO Consulting Unavailable FRAKOWSKI, NEVIN DO Admitting Unavailable FRAKOWSKI, NEVIN DO Primary Care Unavailable FRAKOCHIKAKI, NEVIN DO Attending Unavailable PROVIDER, UNKNOWN Consulting Unavailable PROVIDER, UNKNOWN Consulting Unavailable SOLEDAD NEVIN DO Consulting Unavailable YUE DEY MD Primary Care Unavailable YUE DEY MD Admitting Unavailable YUE DEY MD Attending Unavailable PROVIDER, UNKNOWN Consulting Unavailable PROVIDER, UNKNOWN Consulting Unavailable SOLEDAD NEVIN DO Consulting Unavailable YUE DEY MD Primary Care Unavailable YUE DEY MD Admitting Unavailable YUE DEY MD Attending Unavailable PROVIDER, UNKNOWN Consulting Unavailable PROVIDER, UNKNOWN Consulting Unavailable RONAN LOMBARDI DO Primary Care Unavailable RONAN LOMBARDI DO Admitting Unavailable RONAN LOMBARDI DO Attending Unavailable RUCHI REYES CNP Consulting Unavailable RUCHI REYES CNP Referring Unavailable PROVIDER, UNKNOWN Consulting Unavailable PROVIDER, UNKNOWN Consulting Unavailable NEVIN ROWE DO Consulting Unavailable FRAHAMMAD NEVIN DO Admitting Unavailable FRAHAMMAD NEVIN DO Attending Unavailable SOLEDAD NEVIN DO Primary Care Unavailable PROVIDER, UNKNOWN Consulting Unavailable PROVIDER, UNKNOWN Consulting Unavailable RUCHI REYES CNP Primary Care Unavailable RUCHI REYES CNP Admitting Unavailable RUCHI REYES CNP Consulting Unavailable RUCHI REYES CNP Attending Unavailable PROVIDER, UNKNOWN Consulting Unavailable PROVIDER, UNKNOWN Consulting Unavailable ANDI CAPONE Admitting Unavailable ANDI CAPONE Attending Unavailable ANDI CAPONE Primary Care Unavailable RUCHI REYES CNP Consulting Unavailable PROVIDER, UNKNOWN Consulting Unavailable PROVIDER, UNKNOWN Consulting Unavailable FRAKOWSKI, NEVIN DO Consulting Unavailable FRAKOWSKI, NEVIN DO Admitting Unavailable FRAKOWSKI, NEVIN DO Primary Care Unavailable FRAHAMMAD, NEVIN DO Attending Unavailable PROVIDER, UNKNOWN Consulting Unavailable PROVIDER, UNKNOWN Consulting Unavailable FRAKOWSKI, NEVIN DO Consulting Unavailable FRAKOWSKI, NEVIN DO Admitting Unavailable FRAKOWSKI, NEVIN DO Primary Care Unavailable FRAHAMMAD, NEVIN DO Attending Unavailable PROVIDER, UNKNOWN Consulting Unavailable PROVIDER, UNKNOWN Consulting Unavailable RUCHI REYES CNP Primary Care Unavailable RUCHI REYES CNP Admitting Unavailable RUCHI REYES CNP Consulting Unavailable RUCHI REYES CNP Attending Unavailable PROVIDER, UNKNOWN Consulting Unavailable PROVIDER, UNKNOWN Consulting Unavailable RUCHI REYES CNP Primary Care Unavailable RUCHI REYES CNP Admitting Unavailable RUCHI REYES CNP Consulting Unavailable RUCHI REYES CNP Attending Unavailable PROVIDER, UNKNOWN Consulting Unavailable PROVIDER, UNKNOWN Consulting Unavailable RUCHI REYES CNP Consulting Unavailable AMYRUCHI LAGUERRE CNP Primary Care Unavailable RUCHI REYES CNP Admitting Unavailable RUCHI REYES CNP Attending Unavailable PROVIDER, UNKNOWN Consulting Unavailable PROVIDER, UNKNOWN Consulting Unavailable NEVIN ROWE DO Consulting Unavailable YUE DEY MD Primary Care Unavailable YUE DEY MD Admitting Unavailable YUE DEY MD Attending Unavailable PROVIDER, UNKNOWN Consulting Unavailable PROVIDER, UNKNOWN Consulting Unavailable NEVIN ROWE DO Consulting Unavailable YUE DEY MD Primary Care Unavailable YUE DEY MD Admitting Unavailable YUE DEY MD Attending Unavailable PROVIDER, UNKNOWN Consulting Unavailable PROVIDER, UNKNOWN Consulting Unavailable RUCHI REYES CNP Primary Care Unavailable RUCHI REYES CNP Admitting Unavailable RUCHI REYES CNP Consulting Unavailable RUCHI REYES CNP Attending Unavailable PROVIDER, UNKNOWN Consulting Unavailable PROVIDER, UNKNOWN Consulting Unavailable RONAN LOMBARDI DO Admitting Unavailable RONAN LOMBARDI DO Attending Unavailable RONAN LOMBARDI DO Primary Care Unavailable RUCHI REYES CNP Referring Unavailable RUCHI REYES CNP Consulting Unavailable PROVIDER, UNKNOWN Consulting Unavailable PROVIDER, UNKNOWN Consulting Unavailable NEVIN ROWE DO Consulting Unavailable GALAN, SONDRA C Primary Care Unavailable GALAN, SONDRA C Admitting Unavailable GALAN, SONDRA C Attending Unavailable NEVIN ROWE DO Referring Unavailable PROVIDER, UNKNOWN Consulting Unavailable PROVIDER, UNKNOWN Consulting Unavailable NEVIN ROWE DO Consulting Unavailable CSERNYIK, OUMOU DO Admitting Unavailable CSERNYIK, OUMOU DO Attending Unavailable CSERNYIK, OUMOU DO Primary Care Unavailable NEVIN ROWE DO Referring Unavailable PROVIDER, UNKNOWN Consulting Unavailable PROVIDER, UNKNOWN Consulting Unavailable MAITE HERRERA Primary Care Unavailable RUCHI REYES CNP Consulting Unavailable HERRERA, MAITE Admitting Unavailable HERRERA, MAITE Attending Unavailable RUCHI REYES CNP Referring Unavailable PROVIDER, UNKNOWN Consulting Unavailable PROVIDER, UNKNOWN Consulting Unavailable NEVIN ROWE DO Consulting Unavailable RUCHI REYES CNP Primary Care Unavailable RUCHI REYES CNP Admitting Unavailable RUCHI REYES CNP Attending Unavailable PROVIDER, UNKNOWN Consulting Unavailable PROVIDER, UNKNOWN Consulting Unavailable Allergies Allergy Classification Reported Allergen(s) Allergy Type Date of Onset Reaction(s) Facility (2 sources) iodine; Translations: [IODINE] Drug Allergy 05-25-19 11 [facility] Work Phone: (1 source) CHLORAPREP drug allergy 06-14-19 13 itching [facility] Work Phone: (4 sources) Chlorhexidine / Isopropyl Alcohol; Translations: [CHLORHEXIDIN-ISO PROPYL ALCOHOL] Drug Allergy 05-30-19 Rash [facility] Work Phone: (4 sources) Latex; Translations: [LATEX] Drug Allergy 05-30-19 Rash [facility] Work Phone: (4 sources) Povidone-Iodine; Translations: [POVIDONE-IODINE] Drug Allergy 05-30-19 Rash [facility] Work Phone: (4 sources) traMADol; Translations: [TRAMADOL] Drug Allergy 05-30-19 Other: See Comments [facility] Work Phone: (3 sources) Cat Scan dye [Other] Propensity to adverse reactions 09-26-19 11 Unknown [facility] Work Phone: (1 source) OTHER; Translations: [OTHER] Propensity to adverse reactions (disorder) 09-26-19 11 [facility] Repository (1 source) Contrast media Drug allergy (disorder) [facility] Repository (1 source) Povidone-Iodine Drug Allergy [facility] Repository Medications Completed/Discontinued Medications Medication Drug Class(es) Dates Sig (Normalized) Sig (Original) acetaminophen 21.7 mg/ml / HYDROcodone bitartrate 0.67 mg/ml oral solution (3 sources) Opioid Agonist take 15 mL by mouth every eight hours as needed HYDROcodone-Acetami nophen 10-325 mg/15 mL(15 mL) soln Take 15 mL by mouth every 8 hours as needed for pain. 0 Active Problems Active Problems Problem Classification Problem Date Documented Date Episodic/Chronic Asthma (1 source) Unspecified asthma, uncomplicated; Translations: [Unspecified asthma, uncomplicated] Onset: 11-07-2022 Chronic Cardiac dysrhythmias (9 sources) Atrial fibrillation; Translations: [Permanent atrial fibrillation ] Onset: 05-24-2010 05-24-2010 Chronic Deficiency and other anemia (2 sources) Iron deficiency anemia due to blood loss; Translations: [Iron deficiency anemia secondary to blood loss (chronic)] Chronic Deficiency and other anemia (1 source) Iron deficiency anemia secondary to blood loss (chronic); Translations: [Iron deficiency anemia due to chronic blood loss] Onset: 09-26-2022 Chronic Diabetes mellitus with complications (4 sources) Type 2 diabetes mellitus with hyperglycemia; Translations: [Type 2 diabetes mellitus with hyperglycemia] Onset: 05-01-2022 Chronic Diabetes mellitus without complication (6 sources) Diabetes mellitus; Translations: [Type 2 diabetes mellitus without complications] Onset: 05-24-2010 05-24-2010 Chronic Disorders of lipid metabolism (5 sources) Hyperlipidemia; Translations: [Pure hypercholesterolemia] Onset: 05-24-2010 05-24-2010 Chronic Epilepsy; convulsions (1 source) Other seizures; Translations: [Other seizures] Onset: 11-04-2014 11-04-2014 Chronic Esophageal disorders (4 sources) Esophagitis; Translations: [Esophagitis, unspecified] 09-25-2010 Episodic Essential hypertension (6 sources) Hypertensive disorder; Translations: [Essential hypertension] Onset: 05-24-2010 05-24-2010 Chronic Joint disorders and dislocations; trauma-related (3 sources) Derangement of lateral meniscus; Translations: [Derangement of medial meniscus] Onset: 08-24-2014 12-02-2014 Chronic Mood disorders (4 sources) Depressive disorder; Translations: [Other specified depressive episodes] 09-25-2010 Chronic Nutritional deficiencies (1 source) Vitamin D deficiency, unspecified; Translations: [Vitamin D deficiency, unspecified] Onset: 11-21-2022 Chronic Occlusion or stenosis of precerebral arteries (3 sources) Occlusion and stenosis of bilateral carotid arteries; Translations: [Occlusion and stenosis of bilateral carotid arteries] Onset: 08-15-2022 Chronic Osteoarthritis (2 sources) Osteoarthritis of knee; Translations: [Osteoarthritis] Onset: 11-23-2014 12-02-2014 Chronic Other connective tissue disease (4 sources) Muscle pain; Translations: [Myalgia and myositis, unspecified] 09-25-2010 Episodic Other hereditary and degenerative nervous system conditions (4 sources) Restless legs; Translations: [Restless legs syndrome] 09-25-2010 Chronic Unclassified (6 sources) Body mass index (BMI) 35.0-35.9, adult; Translations: [Body mass index (BMI) 34.0-34.9, adult] Onset: 09-28-2013 Resolved: 11-03-2014 05-16-2016 Chronic Unclassified (1 source) Long-term drug therapy; Translations: [Other exterminator termite (current) drug therapy] Onset: 05-24-2010 05-24-2010 Unclassified (1 source) Aftercare ; Translations: [Encounter for other orthopedic aftercare] Onset: 05-17-2015 05-17-2015 Unclassified (1 source) Preoperative cardiovascular examination ; Translations: [Encounter for preprocedural cardiovascular examination] Onset: 11-16-2015 11-16-2015 Unclassified (1 source) Warfarin therapy started; Translations: [USP (current) use of anticoagulants] Onset: 02-24-2016 02-24-2016 Past or Other Problems Problem Classification Problem Date Documented Da te Episodic/Chronic Allergic reactions (2 sources) Allergy status to other drugs, medicaments and biological substances status; Translations: [Radiographic dye allergy status] Onset: 11-07-2022 Episodic Cardiac dysrhythmias (2 sources) Palpitations; Translations: [Tachycardia] Onset: 05-24-2010 05-24-2010 Episodic Deficiency and other anemia (3 sources) Iron deficiency anemia, unspecified; Translations: [Iron deficiency anemia, unspecified] Onset: 07-31-2022 Episodic Deficiency and other anemia (4 sources) Anemia, unspecified; Translations: [Anemia, unspecified] Onset: 05-01-2022 Episodic E Codes: Fall (1 source) Fall on same level from slipping, tripping and stumbling with subsequent striking against other object, initial encounter; Translations: [Fall on same level from slipping, tripping and stumbling with subsequent striking against other object, initial encounter] Onset: 11-07-2022 Episodic E Codes: Place of occurrence (1 source) Unspecified place in unspecified non-institutional (private) residence as the place of occurrence of the external cause; Translations: [Unspecified place in unspecified non-institutional (private) residence as the place of occurrence of the external cause] Onset: 11-07-2022 Episodic E Codes: Unspecified (1 source) Activity, walking, marching and hiking; Translations: [Activity, walking, marching and hiking] Onset: 11-07-2022 Episodic Gastritis and duodenitis (4 sources) Acute gastritis; Translations: [Acute gastritis without bleeding] Onset: 10-24-2010 10-24-2010 Episodic Joint disorders and dislocations; trauma-related (1 source) Tear of medial meniscus of knee; Translations: [Other tear of medial meniscus, current injury, left knee] Onset: 07-27-2014 07-27-2014 Episodic Malaise and fatigue (3 sources) Other fatigue; Translations: [Other fatigue] Onset: 08-02-2022 Episodic Neoplasms of unspecified nature or uncertain behavior (1 source) Neoplasm of unspecified behavior of bone, soft tissue, and skin; Translations: [Neoplasm of unspecified behavior of bone, soft tissue, and skin] Onset: 04-29-2012 04-29-2012 Episodic Nonspecific chest pain (1 source) Chest pain, unspecified; Translations: [Chest pain, unspecified] Onset: 05-24-2010 05-24-2010 Episodic Nutritional deficiencies (1 source) Deficiency of other specified B group vitamins; Translations: [Deficiency of other specified B group vitamins] Onset: 11-08-2022 Episodic Open wounds of head; neck; and trunk (3 sources) Laceration without foreign body of right buttock, initial encounter; Translations: [Laceration without foreign body of right buttock, initial encounter] Onset: 11-07-2022 Episodic Other aftercare (1 source) intermediate card tender (current) use of oral hypoglycemic drugs; Translations: [USP (current) use of oral hypoglycemic drugs] Onset: 11-07-2022 Episodic Other aftercare (1 source) USP (current) use of anticoagulants; Translations: [USP (current) use of anticoagulants] Onset: 05-01-2022 Episodic Other bone disease and musculoskeletal deformities (1 source) Other specified disorders of bone density and structure, unspecified site; Translations: [Other specified disorders of bone density and structure, unspecified site] Onset: 08-02-2022 Episodic Other connective tissue disease (4 sources) Hematoma; Translations: [Full thickness rotator cuff tear] Onset: 08-10-2014 08-11-2014 Episodic Other lower respiratory disease (2 sources) Dyspnea; Translations: [Shortness of breath] Onset: 05-24-2010 05-24-2010 Episodic Other non-traumatic joint disorders (4 sources) Pain in left shoulder; Translations: [Knee joint effusion] Onset: 07-27-2014 03-25-2015 Episodic Residual codes; unclassified (1 source) Acquired absence of other specified parts of digestive tract; Translations: [Acquired absence of other specified parts of digestive tract] Onset: 11-07-2022 Episodic Residual codes; unclassified (1 source) Acquired absence of other genital organ(s); Translations: [Acquired absence of other genital organ(s)] Onset: 11-07-2022 Episodic Residual codes; unclassified (1 source) Acquired absence of unspecified breast and nipple; Translations: [Acquired absence of unspecified breast and nipple] Onset: 11-07-2022 Episodic Unclassified (4 sources) Abnormal result of cardiovascular function study, unspecified; Translations: [Encounter for screening for malignant neoplasm of cervix] Onset: 05-24-2010 05-24-2010 Episodic Unclassified (3 sources) History of operative procedure on knee; Translations: [FH: Hypertension] Onset: 04-29-2012 06-25-2016 Episodic Results Test Name Value Interpretation Reference Range Facil ity Vital Signs Date Time Vital Sign Value Performing Clinician Facility 09-26-2022 14:21-0400 Body height 154.9 cm Andi Capone MD Work Phone: [facility] 09-26-2022 14:21-0400 Body temperature 97 [degF] Andi Capone MD Work Phone: [facility] 09-26-2022 14:21-0400 Body weight 83.92 kg Andi Capone MD Work Phone: [facility] 09-26-2022 14:21-0400 Diastolic blood pressure 72 mm[Hg] Andi Capone MD Work Phone: [facility] 09-26-2022 14:21-0400 Heart rate 90 /min Andi Capone MD Work Phone: [facility] 09-26-2022 14:21-0400 Respiratory rate 16 /min Andi Capone MD Work Phone: [facility] 09-26-2022 14:21-0400 SaO2% (BldA) [Mass fraction] 97 % Andi Capone MD Work Phone: [facility] 09-26-2022 14:21-0400 Systolic blood pressure 156 mm[Hg] Andi Capone MD Work Phone: [facility] 05-29-2022 15:29-0400 Body height 156.5 cm Yue Dey MD Work Phone: [facility] 05-29-2022 15:29-0400 Body temperature 97 [degF] Yue Dey MD Work Phone: [facility] 05-29-2022 15:29-0400 Body weight 84.14 kg Yue Dey MD Work Phone: [facility] 05-29-2022 15:29-0400 Diastolic blood pressure 71 mm[Hg] Yue Dey MD Work Phone: [facility] 05-29-2022 15:29-0400 Heart rate 100 /min Yue Dey MD Work Phone: [facility] 05-29-2022 15:29-0400 SaO2% (BldA) [Mass fraction] 95 % Yue Dey MD Work Phone: [facility] 05-29-2022 15:29-0400 Systolic blood pressure 132 mm[Hg] Yue Dey MD Work Phone: [facility] 12-04-2016 12:56-0400 BMI (Body Mass Index) 35.96 kg/m2 [facility] Work Phone: 12-04-2016 12:56-0400 BP Diastolic 70 mm[Hg] [facility] Work Phone: 12-04-2016 12:56-0400 BP Systolic 126 mm[Hg] [facility] Work Phone: 12-04-2016 12:56-0400 Height 162.56 cm [facility] Work Phone: 12-04-2016 12:56-0400 Pulse (Heart Rate) 93 /min [facility] Work Phone: 12-04-2016 12:56-0400 Weight 95.03 kg [facility] Work Phone: 05-16-2016 13:06-0400 Respiratory Rate 18 /min [facility] Work Phone: 11-16-2015 12:11-0400 BSA (Body Surface Area) 1.95 m2 [facility] Work Phone: 06-13-2012 15:59-0400 Body Temperature 96.5 [degF] [facility] Work Phone: Encounters Encounter Date Encounter Type Care Provider Facility Start: 02-06-2023 End: 02-06-2023 ambulatory RUCHI CENTENO [facility] Start: 01-22-2023 End: 01-22-2023 ambulatory ANDI CAPONE [facility] Start: 01-09-2023 End: 01-09-2023 ambulatory MAITE HERRERA [facility] Start: 01-07-2023 End: 01-07-2023 ambulatory RUCHI CENTENO [facility] Start: 12-24-2022 End: 12-24-2022 ambulatory RUCHI CENTENO [facility] Start: 11-24-2022 End: 11-24-2022 Emergency department patient visit RONAN SNIDER [facility] Start: 11-21-2022 End: 11-21-2022 ambulatory RUCHI CENTENO [facility] Start: 11-12-2022 ambulatory NEVIN BURK [facility] Start: 11-08-2022 End: 11-08-2022 ambulatory RUCHI REYES [facility] Start: 11-07-2022 End: 11-07-2022 Emergency department patient visit RONAN SNIDER [facility] Start: 09-26-2022 End: 09-27-2022 ambulatory YUE DEY Facility:[facility] Start: 09-26-2022 End: 09-26-2022 ambulatory Andi Capone MD Work Phone: Hematology/Oncology Procedures Date Procedure Procedure Detail Performing Clinician Start: 12-04-2016 End: 12-04-2016 Follow Up Appt 6 months Berny Chambers ANODIZE MACHINE OPERATOR Work Phone: Start: 12-04-2016 End: 12-04-2016 PFM Berny Chambers ANODIZE MACHINE OPERATOR Work Phone: Start: 05-16-2016 End: 05-16-2016 Follow Up Appt 6 months Silvia tolentino PA-C Work Phone: Start: 05-16-2016 End: 05-16-2016 PFM Silvia Ruggiero PA-C Work Phone: Start: 02-24-2016 End: 05-09-2016 INR in Platelet poor plasma by Coagulation assay Jose A Cruz MD Start: 12-05-2015 End: 12-05-2015 *Hepatic Function Panel Jose A Cruz MD Start: 12-05-2015 End: 12-05-2015 Lipid 1996 panel - Serum or Plasma Jose A Cruz MD Start: 11-16-2015 End: 11-16-2015 Ecg routine ecg w/least 12 lds w/i&r Jose A Cruz MD Start: 11-16-2015 End: 11-16-2015 Follow Up Appt 6 months Jose A Cruz MD Start: 11-16-2015 End: 11-16-2015 MMM Jose A Cruz MD Start: 11-14-2015 End: 11-16-2015 *Hepatic Function Panel Jose A Cruz MD Start: 11-14-2015 End: 11-16-2015 Lipid 1996 panel - Serum or Plasma Jose A Cruz MD Start: 08-24-2015 End: 08-24-2015 *Hepatic Function Panel Jose A Cruz MD Start: 08-24-2015 End: 08-24-2015 Lipid 1996 panel - Serum or Plasma Jose A Cruz MD Start: 08-04-2015 End: 08-05-2015 *BFRW - Body Fluid RBC, WBC & DIFF Gegeorin Mead Work Phone: Start: 08-04-2015 End: 08-05-2015 Bacteria identified in Body fluid by Culture Gegeorin Mead Work Phone: Start: 08-04-2015 End: 08-05-2015 Crystals [type] in Body fluid by Light microscopy Gegeorin Mead Work Phone: Start: 08-04-2015 End: 08-05-2015 Glucose [Mass/volume] in Body fluid Gegeorin Mead Work Phone: Start: 08-04-2015 End: 08-05-2015 Protein [Mass/volume] in Body fluid Yancy De Jesus [place] Work Phone: Start: 06-24-2015 End: 08-05-2015 Radex shoulder complete minimum 2 views Gegeorin Mead Work Phone: Start: 06-13-2015 End: 06-12-2016 INR in Platelet poor plasma by Coagulation assay Jose A Cruz MD Start: 05-17-2015 End: 08-05-2015 Transcranial doppler stdy intracranial art compl Yancy Mead Work Phone: Start: 04-20-2015 End: 04-20-2015 Follow Up Appt 6 months Silvia tolentino PA-C Work Phone: Start: 04-20-2015 End: 04-20-2015 PFM Silvia Ruggiero PA-C Work Phone: Start: 03-25-2015 End: 08-24-2015 Mri any jt upper extremity w/o contrast matrl Brady Jean Baptiste Caleb Work Phone: Start: 03-25-2015 End: 08-24-2015 Radex shoulder complete minimum 2 views Brady Ellis Work Phone: Start: 03-10-2015 End: 08-05-2015 *BFRW - Body Fluid RBC, WBC & DIFF Yancy De Jesus [place] Work Phone: Start: 03-10-2015 End: 08-05-2015 Bacteria identified in Body fluid by Culture Yancy De Jesus [place] Work Phone: Start: 03-10-2015 End: 08-05-2015 Crystals [type] in Body fluid by Light microscopy Yancy De Jesus [place] Work Phone: Start: 03-10-2015 End: 08-05-2015 Glucose [Mass/volume] in Body fluid Yancy De Jesus [place] Work Phone: Start: 03-10-2015 End: 08-05-2015 Protein [Mass/volume] in Body fluid Yancy Thomasjosh Work Phone: Start: 01-12-2015 End: 01-13-2016 Physical Therapy General Gegeorin moreno Work Phone: Start: 11-04-2014 End: 11-05-2015 Neurology Referral Jose A Cruz MD Start: 11-03-2014 End: 03-28-2015 *Hepatic Function Panel Jose A Cruz MD Start: 11-03-2014 End: 11-04-2014 Documentation of current medications Jose A Cruz MD Start: 11-03-2014 End: 11-03-2014 Follow Up Appt 6 months Jose A Cruz MD Start: 11-03-2014 End: 11-04-2015 Follow Up Appt Other Jose A Cruz MD Start: 11-03-2014 End: 03-28-2015 Lipid 1996 panel - Serum or Plasma Jose A Cruz MD Start: 11-03-2014 End: 11-03-2014 MMM Jose A Cruz MD Start: 09-17-2014 End: 04-20-2015 INR in Platelet poor plasma by Coagulation assay Jose A Cruz MD Start: 08-24-2014 End: 08-26-2014 *BFRW - Body Fluid RBC, WBC & DIFF Yancy Mead Work Phone: Start: 08-24-2014 End: 03-28-2015 *Hepatic Function Panel Silvia tolentino PA-C Work Phone: Start: 08-24-2014 End: 08-26-2014 Bacteria identified in Body fluid by Culture Yancy Mead Work Phone: Start: 08-24-2014 End: 08-26-2014 Crystals [type] in Body fluid by Light microscopy Yancy Mead Work Phone: Start: 08-24-2014 End: 08-26-2014 Glucose [Mass/volume] in Body fluid Yancy Mead Work Phone: Start: 08-24-2014 End: 03-28-2015 Lipid 1996 panel - Serum or Plasma Silvia Ruggiero PA-C Work Phone: Start: 08-24-2014 End: 08-26-2014 Protein [Mass/volume] in Body fluid Yancy Mead Work Phone: Start: 08-19-2014 End: 08-26-2014 *BMP Yancy Cedillo i Work Phone: Start: 08-10-2014 End: 08-26-2014 Mri any jt lower extrem w/contrast material Yancy Mead Work Phone: Start: 07-27-2014 End: 07-28-2014 Documentation of current medications Yancy Mead Work Phone: Start: 07-27-2014 End: 08-26-2014 Mri any jt lower extrem w/o contrast matrl Yancy Mead Work Phone: Start: 07-27-2014 End: 08-26-2014 Radiologic exam knee complete 4/more views Yancy Mead Work Phone: Start: 07-27-2014 End: 07-28-2014 Smoking cessation education Yancy macdonald Work Phone: Start: 06-10-2014 End: 04-20-2015 INR in Platelet poor plasma by Coagulation assay Jose A Cruz MD Start: 03-30-2014 End: 03-31-2014 Documentation of current medications Silvia Ruggiero PA-C Work Phone: Start: 03-30-2014 End: 03-30-2014 Ecg routine ecg w/least 12 lds w/i&r Silvia Ruggiero PA-C Work Phone: Start: 03-30-2014 End: 03-30-2014 Follow Up Appt 6 months Silvia tolentino PA-C Work Phone: Start: 03-30-2014 End: 03-30-2014 PFM Silvia Ruggiero PA-C Work Phone: Start: 12-26-2013 End: 03-23-2014 *Hepatic Function Panel Silvia tolentino PA-C Work Phone: Start: 12-26-2013 End: 03-23-2014 Lipid 1996 panel - Serum or Plasma Silvia Ruggiero PA-C Work Phone: Start: 09-28-2013 End: 09-28-2013 Follow Up Appt 6 months Jose A Cruz MD Start: 09-28-2013 End: 09-28-2013 MMM Jose A Cruz MD Start: 06-25-2013 End: 07-02-2013 *Hepatic Function Panel Silvia tolentino PA-C Work Phone: Start: 06-25-2013 End: 07-02-2013 Lipid 1996 panel - Serum or Plasma Silvia Ruggiero PA-C Work Phone: Start: 03-27-2013 End: 03-27-2013 Follow Up Appt 6 months Silvia tolentino PA-C Work Phone: Start: 03-27-2013 End: 03-23-2014 Hemoglobin and Hematocrit panel - Blood Silvia Ruggiero PA-C Work Phone: Start: 03-27-2013 End: 03-27-2013 PFM Silvia Ruggiero PA-C Work Phone: Start: 11-25-2012 End: 12-31-2012 *Hepatic Function Panel Silvia tolentino PA-C Work Phone: Start: 11-25-2012 End: 12-31-2012 Lipid 1996 panel - Serum or Plasma Silvia Ruggiero PA-C Work Phone: Start: 09-01-2012 End: 09-01-2012 Follow Up Appt 6 months Jose A Cruz MD Start: 09-01-2012 End: 09-01-2012 MMMarce Cruz MD Start: 07-30-2012 End: 02-19-2013 INR in Platelet poor plasma by Coagulation assay Jose A Cruz MD Start: 04-25-2012 End: 05-27-2012 *Hepatic Function Panel Jose A Cruz MD Start: 04-25-2012 End: 05-27-2012 Lipid 1996 panel - Serum or Plasma Jose A Cruz MD Start: 02-15-2012 End: 05-27-2012 *Hepatic Function Panel Jose A Cruz MD Start: 02-15-2012 End: 02-15-2012 Ecg routine ecg w/least 12 lds w/i&r Jose A Cruz MD Start: 02-15-2012 End: 02-19-2013 Follow Up Appt 6 months Jose A Cruz MD Start: 02-15-2012 End: 05-27-2012 Lipid 1996 panel - Serum or Plasma Jose A Cruz MD Start: 11-12-2011 End: 02-19-2013 *BMP Jose A Cruz MD Start: 11-12-2011 End: 11-12-2011 *CBC with Differential Jose A Cruz MD Start: 11-12-2011 End: 11-13-2011 *Hepatic Function Panel Jose A Cruz MD Start: 11-12-2011 End: 11-12-2011 aPTT in Platelet poor plasma by Coagulation assay Jose A Cruz MD Start: 11-12-2011 End: 11-12-2011 CBC W Auto Differential panel - Blood Jose A Cruz MD Start: 11-12-2011 End: 11-14-2011 Chest x-ray Jose A Cruz MD Start: 11-12-2011 End: 02-19-2013 Ecg routine ecg w/least 12 lds w/i&r Jose A Cruz MD Start: 11-12-2011 End: 11-14-2011 Echocardiography Jose A Cruz MD Start: 11-12-2011 End: 11-12-2011 Follow Up Appt Other Jose A Cruz MD Start: 11-12-2011 End: 02-19-2013 INR in Platelet poor plasma by Coagulation assay Jose A Cruz MD Start: 11-12-2011 End: 02-19-2013 Left & Right Heart Cath Jose A Cruz MD Start: 11-12-2011 End: 11-13-2011 Lipid 1996 panel - Serum or Plasma Jose A Cruz MD Start: 09-26-2011 End: 09-28-2011 *Hepatic Function Panel Jose A Cruz MD Start: 09-26-2011 End: 09-28-2011 Lipid 1996 panel - Serum or Plasma Jose A Cruz MD Start: 08-30-2011 End: 08-30-2011 Ecg routine ecg w/least 12 lds w/i&r Jose A Cruz MD Start: 08-30-2011 End: 08-30-2011 Follow Up Appt 6 months Jose A Cruz MD Start: 01-25-2011 End: 01-25-2011 Ecg routine ecg w/least 12 lds w/i&r Jose A Cruz MD Start: 01-25-2011 End: 01-25-2011 Follow Up Appt 6 months Jose A Cruz MD Plan of Treatment Date Care Activity Detail Author Start: 01-30-2023 Hemoglobin A1c/Hemoglobin.total in Blood HBA1C [facility] Start: 11-01-2022 Hemoglobin A1c/Hemoglobin.total in Blood HBA1C [facility] Start: 10-26-2022 Hepatitis B screening URINE ALBUMIN:CREATININE RATIO [facility] Start: 10-26-2022 Influenza vaccination INFLUENZA (#1) [facility] Start: 09-26-2022 End: 11-26-2022 CBC W Auto Differential panel - Blood CBC + DIFF Lab Routine Iron deficiency anemia due to chronic blood loss Expected: 09/26/2022, Expires: 11/26/2022 [facility] Work Phone: Payers Date Payer Category Payer Medicaid [id number] 2017 Medicaid [id number] 2017 Medicare [id number] 1950 Unknown [id number] 2.16.8 [id number] 1950 Unknown [id number] 2.16.8 40.1.530197.3.579.2.651 1950 Unknown [id number] 2.16.8 40.1.579002.3.579.2.651 1950 Unknown [id number] 2.16.8 40.1.780018.3.579.2.651 1950 Unknown [id number] 2.16.8 40.1.483994.3.579.2.651 1950 Unknown [id number] 2.16.8 40.1.203674.3.579.2.651 1952 Unknown [id number] 2.16.8 40.1.918111.3.579.2.651 1950 Unknown [id number] 2.16.8 40.1.063083.3.579.2.651 1950 Unknown [id number] 2.16.8 40.1.571972.3.579.2.651 1952 Unknown [id number] 2.16.8 40.1.075991.3.579.2.651 1952 Unknown [id number] 2.16.8 40.1.948398.3.579.2.651 1952 Unknown [id number] 2.16.8 40.1.333366.3.579.2.651 1952 Unknown [id number] 2.16.8 40.1.798294.3.579.2.651 1952 Unknown [id number] 2.16.8 40.1.336473.3.579.2.651 1952 Unknown [id number] 2.16.8 40.1.661576.3.579.2.651 1952 Unknown [id number] 2.16.8 40.1.139640.3.579.2.651 1952 Unknown [id number] 2.16.84 0.1.279740.3.579.2.651 1952 Unknown [id number] 2.16.84 0.1.369811.3.579.2.651 1952 Unknown [id number] 2.16.84 0.1.721985.3.579.2.651 1952 Unknown [id number] 2.16.84 0.1.933647.3.579.2.651 1952 Unknown [id number] 2.16.84 0.1.989881.3.579.2.651 1952 Unknown [id number] 2.16.84 0.1.585086.3.579.2.651 1952 Unknown [id number] 2.16.84 0.1.690337.3.579.2.651 1952 Unknown [id number] 2.16.84 0.1.051622.3.579.2.651 1952 Unknown [id number] 2.16.84 0.1.499165.3.579.2.651 Social History Date Type Detail Facility [facility] Start: 04-11-2012 Tobacco use and exposure Smoke less tobacco non-user [facility] Start: 10-11-2021 End: 09-26-2022 Alcohol intake Current non-drinker of alcohol (finding) [facility] Start: 1950 Sex Assigned At Not on file [facility] Start: 05-29-2022 End: 09-26-2022 History of Social function [facility] Start: 05-29-2022 End: 09-26-2022 Tobacco use panel [facility] National Score (1-10 0), lower number is lower risk 74 [facility] Progress note 09-26-2022 Note Date & Type Note Facility 09-26-2022 Note HNO ID: [id number] Author: Andi Capone MD Service: ? Author Type: Physician Type: Progress Notes Filed: 09/26/2022 3:49 PM Note Text: HISTORY OF PRESENT ILLNESS: Noemi Chang is a 71 year old female follow up for iron deficiency anemia. Got [address] [facility]. Labs today reviewed. On PPI long time. Colonoscopy planned soon, within the month CLINICAL IMPRESSION: LIZA, ?PPI related RECOMMENDATION/PLAN: 1. GI work up as planned 2. Po iron with OJ 3. Recheck 4 months, paper orders given to be drawn at [place] Written and verbal health teaching given to patient, patient verbalizes understanding and agrees with treatment plan. PAST MEDICAL HISTORY Diagnosis Date Acute gastritis without mention of hemorrhage Anxiety state, unspecified Atrial fibrillation (HCC) Depressive disorder, not elsewhere classified Esophagitis, unspecified Esophagitis, unspecified Fibromyalgia Myalgia and myositis, unspecified PTSD (post-traumatic stress disorder) Pure hypercholesterolemia Restless leg Type II or unspecified type diabetes mellitus without mention of complication, not stated as uncontrolled Unspecified essential hypertension PAST SURGICAL HISTORY Procedure Laterality Date BREAST LUMPECTOMY HX Left CHOLECYSTECTOMY 08/20/2004 Cholecystectomy EGD TRANSORAL BIOPSY SINGLE/MULTIPLE 10/24/2010 F LIGATION TUBAL HYSTERECTOMY HX PAST SURGICAL HISTORY OF L breast lumpectomy ROTATOR CUFF REPAIR x2 Right arm TONSILLECTOMY HX TOTAL KNEE REPLACEMENT Right TOTAL KNEE REPLACEMENT Left FAMILY HISTORY Problem Relation Age of Onset Heart Mother hypertension Arthritis Mother Hypertension Mother Heart Father Asthma Father Bleeding disorder Father Skin Cancer Father other (sinus cancer) Sister Social History Tobacco Use Smoking status: Never Smokeless tobacco: Never Vaping Use Vaping Use: Never used Substance Use Topics Alcohol use: No Drug use: Never ALLERGIES: ALLERGIES Allergen Reactions Cat Scan Dye [Other] Unknown Chloraprep Clear [C* Rash Latex Rash Povidone-Iodine Rash Tramadol Other: See Comments seizure CURRENT OUTPATIENT MEDICATIONS: OXYGEN, HOME THERAPY, 3.5 L/min by Nasal Cannula route as directed. Uses at bedtime HYDROcodone-Acetaminophen 10-325 mg/15 mL(15 mL) soln Take 15 mL by mouth every 8 hours as needed for pain. atorvastatin (LIPITOR) 80 mg tablet Take 80 mg by mouth once daily. iron polysaccharide complex (FERREX-150) 150 mg iron capsule every 48 hours. cholecalciferol, vitamin D3, (VITAMIN D3 ORAL) Take by mouth once daily. predniSONE (DELTASONE) 5 mg tablet Take 5 mg by mouth once daily. donepezil (ARICEPT) 10 mg tablet Take 10 mg by mouth once daily. 15 mg latanoprost (XALATAN) 0.005 % ophthalmic solution as directed. JANUVIA 25 mg tablet Take 25 mg by mouth once daily. Cetirizine 10 mg cap Take 10 mg by mouth once daily. Verapamil HCl 360 mg ORAL 24 hr capsule Take 360 mg by mouth daily at bedtime. GABAPENTIN (NEURONTIN ORAL) Take 400 mg by mouth three times daily. esterified estrogens (MENEST) 1.25 mg tab Take by mouth once daily. lansoprazole (PREVACID) 30 mg capsule Take 30 mg by mouth once daily. valsartan (DIOVAN) 160 mg tablet Take 160 mg by mouth once daily. hydrOXYzine HCl 10 mg ORAL tablet Take 10 mg by mouth three times daily as needed. warfarin (COUMADIN) 4 mg tablet Take 4 mg by mouth once daily. 3 MG AMITRIPTYLINE HCL (ELAVIL ORAL) Take 25 mg by mouth once daily. Methylsulfonylmethane 1,000 mg cap Take by mouth once daily. 3,000-5,000 mg dicyclomine (BENTYL) 20 mg tablet Take 20 mg by mouth every 6 hours. DULoxetine (CYMBALTA) 20 mg capsule Take 60 mg by mouth once daily. cyanocobalamin (VITAMIN B-12) 500 mcg tablet once daily. simvastatin (ZOCOR) 20 mg tablet Take 20 mg by mouth daily at bedtime. (Patient not taking: Reported on 05/29/2022) sertraline (ZOLOFT) 50 mg tablet Take 50 mg by mouth once daily. (Patient not taking: Reported on 05/29/2022) buPROPion XL (WELLBUTRIN XL) 300 mg 24 hr tablet Take 300 mg by mouth once daily. (Patient not taking: Reported on 05/29/2022) traMADol (ULTRAM) 50 mg tablet Take 50 mg by mouth every 6 hours as needed. (Patient not taking: Reported on 05/29/2022) pioglitazone (ACTOS) 15 mg tablet Take 15 mg by mouth once daily. (Patient not taking: Reported on 05/29/2022) meloxicam (MOBIC) 15 mg tablet Take 15 mg by mouth once daily. (Patient not taking: Reported on 05/29/2022) REVIEW OF SYSTEMS: GENERAL: No fever, night sweats, weight loss or malaise. All other reviewed and negative other than HPI. PHYSICAL EXAMINATION: VITAL SIGNS: BP 156/72[Provider notified of blood pressure[ Pulse 90 Temp (Src) 97 (Temporal) Resp 16 Ht 5' 1 [Verbal due to balance deficits.[ (1.55m) Wt 185 lb (83.9kg) SpO2 97% BMI 34.97 kg/(m2). GENERAL APPEARANCE: Well appearing, in no acute distress, alert and oriented x3, well-hyd (more content not included)... [facility] History of Present illness Narrative 09-26-2022 Andi Capone MD - 09/26/2022 2:27 PM EDT Note Date & Type Note Facility 09-26-2022 History of Presen t illness Narrative HISTORY OF PRESENT ILLNESS: Noemi Chang is a 71 year old female follow up for iron deficiency anemia. Got [address] [facility]. Labs today reviewed. On PPI long time. Colonoscopy planned soon, within the month CLINICAL IMPRESSION: LIZA, ?PPI related RECOMMENDATION/PLAN: 1. GI work up as planned 2. Po iron with OJ 3. Recheck 4 months, paper orders given to be drawn at [place] Written and verbal health teaching given to patient, patient verbalizes understanding and agrees with treatment plan. PAST MEDICAL HISTORY Diagnosis Date Acute gastritis without mention of hemorrhage Anxiety state, unspecified Atrial fibrillation (HCC) Depressive disorder, not elsewhere classified Esophagitis, unspecified Esophagitis, unspecified Fibromyalgia Myalgia and myositis, unspecified PTSD (post-traumatic stress disorder) Pure hypercholesterolemia Restless leg Type II or unspecified type diabetes mellitus without mention of complication, not stated as uncontrolled Unspecified essential hypertension PAST SURGICAL HISTORY Procedure Laterality Date BREAST LUMPECTOMY HX Left CHOLECYSTECTOMY 08/20/2004 Cholecystectomy EGD TRANSORAL BIOPSY SINGLE/MULTIPLE 10/24/2010 F LIGATION TUBAL HYSTERECTOMY HX PAST SURGICAL HISTORY OF L breast lumpectomy ROTATOR CUFF REPAIR x2 Right arm TONSILLECTOMY HX TOTAL KNEE REPLACEMENT Right TOTAL KNEE REPLACEMENT Left FAMILY HISTORY Problem Relation Age of Onset Heart Mother hypertension Arthritis Mother Hypertension Mother Heart Father Asthma Father Bleeding disorder Father Skin Cancer Father other (sinus cancer) Sister Social History Tobacco Use Smoking status: Never Smokeless tobacco: Never Vaping Use Vaping Use: Never used Substance Use Topics Alcohol use: No Drug use: Never ALLERGIES: ALLERGIES Allergen Reactions Cat Scan Dye [Other] Unknown Chloraprep Clear [C* Rash Latex Rash Povidone-Iodine Rash Tramadol Other: See Comments seizure CURRENT OUTPATIENT MEDICATIONS: OXYGEN, HOME THERAPY, 3.5 L/min by Nasal Cannula route as directed. Uses at bedtime HYDROcodone-Acetaminophen 10-325 mg/15 mL(15 mL) soln Take 15 mL by mouth every 8 hours as needed for pain. atorvastatin (LIPITOR) 80 mg tablet Take 80 mg by mouth once daily. iron polysaccharide complex (FERREX-150) 150 mg iron capsule every 48 hours. cholecalciferol, vitamin D3, (VITAMIN D3 ORAL) Take by mouth once daily. predniSONE (DELTASONE) 5 mg tablet Take 5 mg by mouth once daily. donepezil (ARICEPT) 10 mg tablet Take 10 mg by mouth once daily. 15 mg latanoprost (XALATAN) 0.005 % ophthalmic solution as directed. JANUVIA 25 mg tablet Take 25 mg by mouth once daily. Cetirizine 10 mg cap Take 10 mg by mouth once daily. Verapamil HCl 360 mg ORAL 24 hr capsule Take 360 mg by mouth daily at bedtime. GABAPENTIN (NEURONTIN ORAL) Take 400 mg by mouth three times daily. esterified estrogens (MENEST) 1.25 mg tab Take by mouth once daily. lansoprazole (PREVACID) 30 mg capsule Take 30 mg by mouth once daily. valsartan (DIOVAN) 160 mg tablet Take 160 mg by mouth once daily. hydrOXYzine HCl 10 mg ORAL tablet Take 10 mg by mouth three times daily as needed. warfarin (COUMADIN) 4 mg tablet Take 4 mg by mouth once daily. 3 MG AMITRIPTYLINE HCL (ELAVIL ORAL) Take 25 mg by mouth once daily. Methylsulfonylmethane 1,000 mg cap Take by mouth once daily. 3,000-5,000 mg dicyclomine (BENTYL) 20 mg tablet Take 20 mg by mouth every 6 hours. DULoxetine (CYMBALTA) 20 mg capsule Take 60 mg by mouth once daily. cyanocobalamin (VITAMIN B-12) 500 mcg tablet once daily. simvastatin (ZOCOR) 20 mg tablet Take 20 mg by mouth daily at bedtime. (Patient not taking: Reported on 05/29/2022) sertraline (ZOLOFT) 50 mg tablet Take 50 mg by mouth once daily. (Patient not taking: Reported on 05/29/2022) buPROPion XL (WELLBUTRIN XL) 300 mg 24 hr tablet Take 300 mg by mouth once daily. (Patient not taking: Reported on 05/29/2022) traMADol (ULTRAM) 50 mg tablet Take 50 mg by mouth every 6 hours as needed. (Patient not taking: Reported on 05/29/2022) pioglitazone (ACTOS) 15 mg tablet Take 15 mg by mouth once daily. (Patient not taking: Reported on 05/29/2022) meloxicam (MOBIC) 15 mg tablet Take 15 mg by mouth once daily. (Patient not taking: Reported on 05/29/2022) REVIEW OF SYSTEMS: GENERAL: No fever, night sweats, weight loss or malaise. All other reviewed and negative other than HPI. PHYSICAL EXAMINATION: VITAL SIGNS: BP 156/72[Provider notified of blood pressure[ Pulse 90 Temp (Src) 97 (Temporal) Resp 16 Ht 5' 1 [Verbal due to balance deficits.[ (1.55m) Wt 185 lb (83.9kg) SpO2 97% BMI 34.97 kg/(m^2). GENERAL APPEARANCE: Well appearing, in no acute distress, alert and oriented x3, well-hydrated, well nourished. I spent a total of 30 minutes on the date of the service which included preparing to see the patient, [id number] patient care, completing clinical documentation, obtaining and/or reviewing separately obtained history, counseling and educating the patient/family/caregiver, ordering medications, tests, or procedures, independently interpreting results (not separately reported), and communicating results to the patient/family/caregiver. Electronically Signed: Andi Capone MD September 26, 2022 2:27 PM documented in this encounter [facility] Note 05-31-2022 Telephone Encounter - Anju Kuhn LPN - 05/31/2022 8:51 AM EDTTelephone Encounter - Anju Kuhn LPN - 05/30/2022 10:28 AM EDT Note Date & Type Note Facility 05-31-2022 Miscellaneous Notes Formattin g of this note might be different from the original. Patient returned call and still would like iron infusions at [facility]. I had faxed the orders and a note to patient's PCP office yesterday informing them they would have to precert this for [facility]. I confirmed this morning that they did receive orders/note. Anju Kuhn LPN At yesterday's OV, patient expressed her desire to have iron infusions at [facility]. I faxed over orders and insurance information to [facility] infusion suite. [facility] called today and stated they will will need this office to precert iron. I informed [facility] that we do not precert for other facilities as this was the patient's choice. Patient has 2 options: Have her iron completed here. 2. PCP can order and precert iron infusions at [facility]. I left patient a message to contact this nurse. I also faxed the orders and a message to the patient's PCP office. Anju Kuhn LPN documented in this encounter [facility] Progress note 05-29-2022 Note Date & Type Note Facility 05-29-2022 Note HNO ID: [id number] Author: Yue Dey MD Service: ? Author Type: Physician Type: Progress Notes Filed: 05/29/2022 4:52 PM Note Text: SERVICE DATE: May 29, 2022 CHIEF COMPLAINT: Noemi Chang is a 71 year old female referred by , for my opinion regarding the management of iron deficiency anemia. The impression and plan will be communicated back via the EMR or under separate cover letter if necessary. PMH, medications and allergies personally reviewed by me today. Any changes documented in appropriate section.. History was obtained from the patient and from review of the patient's old medical records. HISTORY OF PRESENT ILLNESS: Very pleasant 71-year-old white lady referred for symptomatic iron deficiency anemia. She had all the parameter tested and have shown unequivocally typical iron deficiency anemia. There is microcytosis with elevation of RDW, high normal TIBC and low ferritin. Even the registered ferritin is probably higher than the true 1 since is an acute phase reactant. Patient complains of fatigue as well as exertional dyspnea and occasional dizziness and lightheadedness Diagnostic Studies: Reviewed PAST MEDICAL HISTORY: PAST MEDICAL HISTORY Diagnosis Date Acute gastritis without mention of hemorrhage Anxiety state, unspecified Atrial fibrillation (HCC) Depressive disorder, not elsewhere classified Esophagitis, unspecified Esophagitis, unspecified Fibromyalgia Myalgia and myositis, unspecified PTSD (post-traumatic stress disorder) Pure hypercholesterolemia Restless leg Type II or unspecified type diabetes mellitus without mention of complication, not stated as uncontrolled Unspecified essential hypertension PAST SURGICAL HISTORY: PAST SURGICAL HISTORY Procedure Laterality Date BREAST LUMPECTOMY HX Left CHOLECYSTECTOMY 08/20/2004 Cholecystectomy EGD TRANSORAL BIOPSY SINGLE/MULTIPLE 10/24/2010 F LIGATION TUBAL HYSTERECTOMY HX PAST SURGICAL HISTORY OF L breast lumpectomy ROTATOR CUFF REPAIR x2 Right arm TONSILLECTOMY HX TOTAL KNEE REPLACEMENT Right TOTAL KNEE REPLACEMENT Left CURRENT MEDICATIONS: HYDROcodone-Acetaminophen 10-325 mg/15 mL(15 mL) soln Take 15 mL by mouth every 8 hours as needed for pain. atorvastatin (LIPITOR) 80 mg tablet Take 80 mg by mouth once daily. iron polysaccharide complex (FERREX-150) 150 mg iron capsule every 48 hours. cholecalciferol, vitamin D3, (VITAMIN D3 ORAL) Take by mouth once daily. predniSONE (DELTASONE) 5 mg tablet Take 5 mg by mouth once daily. donepezil (ARICEPT) 10 mg tablet Take 10 mg by mouth once daily. latanoprost (XALATAN) 0.005 % ophthalmic solution as directed. JANUVIA 25 mg tablet Take 25 mg by mouth once daily. cyanocobalamin (VITAMIN B-12) 500 mcg tablet once daily. Cetirizine 10 mg cap once daily. Verapamil HCl 360 mg ORAL 24 hr capsule Take 360 mg by mouth daily at bedtime. GABAPENTIN (NEURONTIN ORAL) Take by mouth. esterified estrogens (MENEST) 1.25 mg tab Take by mouth once daily. lansoprazole (PREVACID) 30 mg capsule Take 30 mg by mouth once daily. valsartan (DIOVAN) 160 mg tablet Take 160 mg by mouth once daily. hydrOXYzine HCl 10 mg ORAL tablet Take 10 mg by mouth three times daily as needed. warfarin (COUMADIN) 4 mg tablet Take 4 mg by mouth once daily. AMITRIPTYLINE HCL (ELAVIL ORAL) Take by mouth. Methylsulfonylmethane 1,000 mg cap Take by mouth. dicyclomine (BENTYL) 20 mg tablet Take 20 mg by mouth every 6 hours. DULoxetine (CYMBALTA) 20 mg capsule Take 60 mg by mouth once daily. simvastatin (ZOCOR) 20 mg tablet Take 20 mg by mouth daily at bedtime. (Patient not taking: Reported on 05/29/2022) sertraline (ZOLOFT) 50 mg tablet Take 50 mg by mouth once daily. (Patient not taking: Reported on 05/29/2022) buPROPion XL (WELLBUTRIN XL) 300 mg 24 hr tablet Take 300 mg by mouth once daily. (Patient not taking: Reported on 05/29/2022) traMADol (ULTRAM) 50 mg tablet Take 50 mg by mouth every 6 hours as needed. (Patient not taking: Reported on 05/29/2022) pioglitazone (ACTOS) 15 mg tablet Take 15 mg by mouth once daily. (Patient not taking: Reported on 05/29/2022) meloxicam (MOBIC) 15 mg tablet Take 15 mg by mouth once daily. (Patient not taking: Reported on 05/29/2022) ALLERGIES/INTOLERANCES: ALLERGIES Allergen Reactions Cat Scan Dye [Other] Unknown Chloraprep Clear [C* Rash Latex Rash Povidone-Iodine Rash Tramadol Other: See Comments seizure FAMILY HISTORY: FAMILY HISTORY Problem Relation Age of Onset Heart Mother hypertension Arthritis Mother Hypertension Mother Heart Father Asthma Father Bleeding disorder Father Skin Cancer Father other (sinus cancer) Sister SOCIAL HISTORY: Social History Tobacco Use Smoking status: Never Smokeless tobacco: Never Substance Use Topics Alcohol use: No Drug use: No ROS: Fatigue that gets severe at times; exertional dyspnea more recently with minimal exertion; occasional dizzines (more content not included)... [facility] History of Present illness Narrative 05-29-2022 Yue Dey MD - 05/29/2022 4:45 PM EDT Note Date & Type Note Facility 05-29-2022 History of Presen t illness Narrative Images from the original note were not included. SERVICE DATE: May 29, 2022 CHIEF COMPLAINT: Noemi Chang is a 71 year old female referred by , for my opinion regarding the management of iron deficiency anemia. The impression and plan will be communicated back via the EMR or under separate cover letter if necessary. PMH, medications and allergies personally reviewed by me today. Any changes documented in appropriate section.. History was obtained from the patient and from review of the patient's old medical records. HISTORY OF PRESENT ILLNESS: Very pleasant 71-year-old white lady referred for symptomatic iron deficiency anemia. She had all the parameter tested and have shown unequivocally typical iron deficiency anemia. There is microcytosis with elevation of RDW, high normal TIBC and low ferritin. Even the registered ferritin is probably higher than the true 1 since is an acute phase reactant. Patient complains of fatigue as well as exertional dyspnea and occasional dizziness and lightheadedness Diagnostic Studies: Reviewed PAST MEDICAL HISTORY: PAST MEDICAL HISTORY Diagnosis Date Acute gastritis without mention of hemorrhage Anxiety state, unspecified Atrial fibrillation (HCC) Depressive disorder, not elsewhere classified Esophagitis, unspecified Esophagitis, unspecified Fibromyalgia Myalgia and myositis, unspecified PTSD (post-traumatic stress disorder) Pure hypercholesterolemia Restless leg Type II or unspecified type diabetes mellitus without mention of complication, not stated as uncontrolled Unspecified essential hypertension PAST SURGICAL HISTORY: PAST SURGICAL HISTORY Procedure Laterality Date BREAST LUMPECTOMY HX Left CHOLECYSTECTOMY 08/20/2004 Cholecystectomy EGD TRANSORAL BIOPSY SINGLE/MULTIPLE 10/24/2010 F LIGATION TUBAL HYSTERECTOMY HX PAST SURGICAL HISTORY OF L breast lumpectomy ROTATOR CUFF REPAIR x2 Right arm TONSILLECTOMY HX TOTAL KNEE REPLACEMENT Right TOTAL KNEE REPLACEMENT Left CURRENT MEDICATIONS: HYDROcodone-Acetaminophen 10-325 mg/15 mL(15 mL) soln Take 15 mL by mouth every 8 hours as needed for pain. atorvastatin (LIPITOR) 80 mg tablet Take 80 mg by mouth once daily. iron polysaccharide complex (FERREX-150) 150 mg iron capsule every 48 hours. cholecalciferol, vitamin D3, (VITAMIN D3 ORAL) Take by mouth once daily. predniSONE (DELTASONE) 5 mg tablet Take 5 mg by mouth once daily. donepezil (ARICEPT) 10 mg tablet Take 10 mg by mouth once daily. latanoprost (XALATAN) 0.005 % ophthalmic solution as directed. JANUVIA 25 mg tablet Take 25 mg by mouth once daily. cyanocobalamin (VITAMIN B-12) 500 mcg tablet once daily. Cetirizine 10 mg cap once daily. Verapamil HCl 360 mg ORAL 24 hr capsule Take 360 mg by mouth daily at bedtime. GABAPENTIN (NEURONTIN ORAL) Take by mouth. esterified estrogens (MENEST) 1.25 mg tab Take by mouth once daily. lansoprazole (PREVACID) 30 mg capsule Take 30 mg by mouth once daily. valsartan (DIOVAN) 160 mg tablet Take 160 mg by mouth once daily. hydrOXYzine HCl 10 mg ORAL tablet Take 10 mg by mouth three times daily as needed. warfarin (COUMADIN) 4 mg tablet Take 4 mg by mouth once daily. AMITRIPTYLINE HCL (ELAVIL ORAL) Take by mouth. Methylsulfonylmethane 1,000 mg cap Take by mouth. dicyclomine (BENTYL) 20 mg tablet Take 20 mg by mouth every 6 hours. DULoxetine (CYMBALTA) 20 mg capsule Take 60 mg by mouth once daily. simvastatin (ZOCOR) 20 mg tablet Take 20 mg by mouth daily at bedtime. (Patient not taking: Reported on 05/29/2022) sertraline (ZOLOFT) 50 mg tablet Take 50 mg by mouth once daily. (Patient not taking: Reported on 05/29/2022) buPROPion XL (WELLBUTRIN XL) 300 mg 24 hr tablet Take 300 mg by mouth once daily. (Patient not taking: Reported on 05/29/2022) traMADol (ULTRAM) 50 mg tablet Take 50 mg by mouth every 6 hours as needed. (Patient not taking: Reported on 05/29/2022) pioglitazone (ACTOS) 15 mg tablet Take 15 mg by mouth once daily. (Patient not taking: Reported on 05/29/2022) meloxicam (MOBIC) 15 mg tablet Take 15 mg by mouth once daily. (Patient not taking: Reported on 05/29/2022) ALLERGIES/INTOLERANCES: ALLERGIES Allergen Reactions Cat Scan Dye [Other] Unknown Chloraprep Clear [C* Rash Latex Rash Povidone-Iodine Rash Tramadol Other: See Comments seizure FAMILY HISTORY: FAMILY HISTORY Problem Relation Age of Onset Heart Mother hypertension Arthritis Mother Hypertension Mother Heart Father Asthma Father Bleeding disorder Father Skin Cancer Father other (sinus cancer) Sister SOCIAL HISTORY: Social History Tobacco Use Smoking status: Never Smokeless tobacco: Never Substance Use Topics Alcohol use: No Drug use: No ROS: Fatigue that gets severe at times; exertional dyspnea more recently with minimal exertion; occasional dizziness and lightheadedness Increase dyspeptic symptoms and constipation with the oral iron supplements Chronic symptoms of acid reflux that apparently are only alleviated by intake of Prevacid PHYSICAL EXAM: BP 132/71 Pulse 100 Temp 36.1 C (97 F) (Temporal) Ht 156.5 cm (5' 1.61 ) Wt 84.1 kg (185 lb 8 oz) SpO2 95% BMI 34.35 kg/m2 Body mass index is 34.35 kg/m . ECO-1 No lymphadenopathy No hepatosplenomegaly No palpable masses Rest of exam is unremarkable DATA REVIEW: I personally reviewed the patient's data and medical records. PERTINENT LABS: Reviewed PERTINENT IMAGING: Reviewed ASSESSMENT AND Plan Iron deficiency anemia documented with low ferritin, microcytosis and elevation of RDW. Because of symptoms specially at her age and GI intolerance to oral iron medications we will schedule her for infusional iron. To minimize inconvenience specially of driving back and forth will arrange for the infusions at [facility] which would be much closer to her home. Most likely the chronic blood loss is due to or at least aggravated by Coumadin. Nevertheless she needs EGD and colonoscopy. This can be arranged through her PCP. We will see her in 3 months to ensure stability The patient was able to ask questions and these were answered in detail. Thank you for the opportunity of participating in the care of this delightful lady. Yue Dey MD cc: Nevin Trent DO documented in this encounter [facility] Note 05-24-2022 Telephone Encounter - Sheron Davis - 05/24/2022 8:47 AM EDTTelephone Encounter - Yvonne Quinones LPN - 05/23/2022 4:57 PM EDT Note Date & Type Note Facility 05-24-2022 Miscellaneous Notes Formattin g of this note might be different from the original. Patient scheduled Referral for iron deficiency anemia Please schedule with Dr. Dey Records in cupboard Yvonne Quinones LPN' documented in this encounter [facility] Evaluation note Note Date & Type Note Facility documented in this encounter [facility] Evaluation note Note Date & Type Note Facility documented in this encounter [facility] Summary Purpose Family History No Family History Records FoundNo Family History Records FoundNo Family History Records FoundNo Family History Records Found Advance Directives No Advanced Directives Records FoundNo Advanced Directives Records FoundNo Advanced Directives Records FoundNo Advanced Directives Records Found Additional Source Comments INFORMATION SOURCE (unrecogn ized section and content) DATE CREATED AUTHOR AUTHOR'S ORGANIZ ATION 11/30/2022 [facility] DATE CREATED AUTHOR AUTHOR'S ORGANIZ ATION 02/10/2023 [facility] ([place]) DATE CREATED AUTHOR AUTHOR'S ORGANIZ ATION 02/13/2023 [facility] Source Comments (unrecognize d section and content) In the event this informatio n is protected by the Federal Confidentiality of Alcohol and Drug Abuse Patient Records regulations: The Federal rules restrict any use of the information to criminally investigate or prosecute any alcohol or drug abuse patient.[facility] the event this information is protected by the Federal Confidentiality of Alcohol and Drug Abuse Patient Records regulations: The Federal rules restrict any use of the information to criminally investigate or prosecute any alcohol or drug abuse patient.[facility] the event this information is protected by the Federal Confidentiality of Alcohol and Drug Abuse Patient Records regulations: The Federal rules restrict any use of the information to criminally investigate or prosecute any alcohol or drug abuse patient.[facility] the event this information is protected by the Federal Confidentiality of Alcohol and Drug Abuse Patient Records regulations: The Federal rules restrict any use of the information to criminally investigate or prosecute any alcohol or drug abuse patient.[facility] Reason for Visit (unrecogniz ed section and content) Reason Comments New Patient Reason Comments Orders Reason Comments Follow Up Care Teams (unrecognized sec tion and content) Master Automotive Glass Technician Relationship Specialty Start Date End Date Nevin Rowe DO [address] [place] [address] PCP - General Family Medicine 05/29/22 Yue Dey MD [address] [place], [place] [id number] Oncology 05/29/22 Master Automotive Glass Technician Relationship Specialty Start Date End Date Ruchi Reyes, CUSTOMER SUPPORT REPRESENTATIVE.[facility] [address] [place] [id number] PCP - General Internal Medicine 09/26/22 Yue Dey MD [address] [place], [place] [id number] Oncology 05/29/22 FOR RECORDS PERTAINING TO PATIENTS WHO ARE OR HAVE BEEN ENROLLED IN A CHEMICAL DEPENDENCY/SUBSTANCEABUSE PROGRAM, SOME INFORMATION MAY BE OMITTED. This clinical summary was aggregated from multiple sources. Caution should be exercised in using it in the provision of clinical care. This summary normalizes information from multiple sources, and as a consequence, information in this document may materially change the coding, format and clinical context of patient data. In addition, data may be omitted in some cases. CLINICAL DECISIONS SHOULD BE BASED ON THE PRIMARY CLINICAL RECORDS. [facility] [employer] [facility]. provides no warranty or guarantee of the accuracy or completeness of information in this document.
[2023-04-18 08:46] LABS: Hemoglobin A1c 6.7 % (3.8-5.6)
== END | disposition home or self-care (01) ==
LOC: BIMLAB 14:41
PROVIDERS: PCP Internal Medicine; Visit Provider Internal Medicine
DX: I10 Essential (primary) hypertension (principal); I48.0 Paroxysmal atrial fibrillation; E11.9 Type 2 diabetes mellitus without complications; E78.5 Hyperlipidemia, unspecified
CPT/HCPCS: 36415; 80053; 80061; 83036; 84439; 84443; 85025

== ENCOUNTER → 2023-05-08 | Outpatient (CLI) | payer MEDICARE, MEDICAID, SELFPAY ==
--- NOTE | 2023-05-08 13:08 | MRI_ITS ---
STUDY: BILATERAL BREAST MR WITHOUT AND WITH CONTRAST REASON FOR EXAM: Female, 72 years old. History of left breast biopsy in December 2022. Abnormal mammogram. TECHNIQUE: Multi-sequence multi-echo imaging of both breasts was performed with a dedicated breast coil. T1-weighted and T2-weighted images were performed before the administration of contrast. T1-weighted images were also performed after the intravenous administration of 17 CC of Clariscan contrast. COMPARISON: Bilateral mammogram dated 12/24/2022, diagnostic left mammogram dated 01/07/2023, left breast: Biopsy dated 02/06/2023 and diagnostic left mammogram performed 02/06/2023 after biopsy. FINDINGS: RIGHT BREAST: Heterogeneously dense breast tissue with moderate to marked background enhancement. No abnormal enhancing masses or areas of non-mass enhancement in the right breast. LEFT BREAST: Heterogeneously dense breast tissue with moderate to marked background enhancement. Deformity of the retroareolar and upper aspect of the left breast with nipple retraction and skin thickening compatible with prior intervention. Two tissue clip artifacts in the retroareolar region of the breast with minimal skin thickening. No abnormal enhancing masses or areas of non-mass enhancement in the left breast. No enlarged or abnormal lymph nodes. No abnormality in the visualized regions of the chest or liver. MRI/Breast Bilateral W/O and W IMPRESSION: Heterogeneously dense fibroglandular tissue with moderate to marked background enhancement. Deformity of the left breast with skin thickening and slight nipple retraction. No other abnormality. Yearly follow-up mammogram would be appropriate. CATEGORY: BIRADS Category 2: Benign. A letter regarding these results will be sent to the patient by the facility within 30 days. Electronically Signed: Omar Johsnon MD at 13:01 EDT ,
== END | disposition home or self-care (01) ==
LOC: MRI 13:03
PROVIDERS: PCP Internal Medicine; Referring Provider Surgery; Visit Provider Surgery
DX: R92.8 Other abnormal and inconclusive findings on diagnostic imaging of breast (principal)
CPT/HCPCS: 77049; A9575; C8908

== ENCOUNTER 2023-05-27 08:49 | Day surgery (SDC) | payer MEDICARE, MEDICAID, SELFPAY ==
[2023-05-27] VITALS (7 sets, daily range): BP systolic 125–146; BP diastolic 79–86; PULSE 81–108; RESP 16–18; TEMP 36.1–37; O2SAT 92–96; BMI 35.0
[2023-05-27 09:16] LABS: Prothrombin Time Fingerstick 11.9 SEC (11.7-14.9)
--- NOTE | 2023-05-27 09:39 | PCM.HP.STD ---
HPI - General General Date of Service: 05/27/23 HPI Narrative NOEMI LYON, is a 72 F who presents for excisional biopsy x 2 left breast. These areas were biopsied and showed fibrocystic patient would still like them excised. Patient did have an MRI did not show any other concern or enhancing lesions. This was discussed with patient she elected to proceed with stereotactic wire needle localization left breast excisional biopsies x 2. office visit- 04/23/23 HPI HPI: [id number] female presents due to mammogram and ultrasound. Patient had ultrasound and mammogram at [facility] as well as biopsy. Patient's initial ultrasounds given for be moderate suspicion for malignancy in the left breast there is a lesion at 12:00 which was 9 x 5 x 11 mm in size and additional suspicious looking lesion at 12:00 that 20 x 9 x 30 mm in size. She also had 4 other lesions 2 were complicated likely benign cyst and the other was a solid-appearing likely benign morphology. Patient previously had an excisional biopsy in the left breast about 5 years ago at [place] which was benign. Patient's biopsy showed fibrocystic change with associated marked calcifications for the first 1 in the subareolar 1 was fibrocystic change with focal usual type ductal hyperplasia. Patient is otherwise aware these were benign however patient still would want them excised. As she is known several people that were told biopsy was benign and that it was not. Patient states she does occasionally have some left breast pain she describes as shooting had it 3-4 times between September and November 2022 only last for couple of minutes. Patient's age and menses 14, age of of first child 34, family history of breast cancer maternal aunt at age 43, previous breast biopsies?1 lumpectomy and 2 biopsies most recently for the two breast lesions. Patient is on Coumadin for A-fib. [facility] Medical History (Updated 05/24/23 @ 08:36 by Thao Hopkins) Acquired tracheal collapse Arthritis Asthma Back pain Cardiology follow-up encounter Chronic atrial fibrillation Chronic fatigue Current chronic use of systemic steroids Degenerative disc disease Depression Diabetes Difficulty swallowing Disc degeneration, lumbar Essential hypertension Fibroadenoma of left breast Fibromyalgia GERD (gastroesophageal reflux disease) Glaucoma Greater trochanteric bursitis of left hip High cholesterol History of atrial fibrillation History of IBS History of pain when walking History of steroid therapy History of stress test Hives Hot flashes due to menopause Hx of echocardiogram Hyperlipidemia Injury of head and neck Left breast lump long term care administrator current use of anticoagulant Low iron Memory deficit Neuropathy Non-smoker On home oxygen therapy Osteoarthritis Osteopenia Panic attacks Paroxysmal atrial fibrillation Pituitary tumor Premature atrial contractions Premature ventricular contraction PTSD (post-traumatic stress disorder) Restless legs Seizures Shortness of breath on exertion Syncope Tachycardia Type 2 diabetes mellitus Vocal cord dysfunction Walker as ambulation aid Wears dentures Wears glasses Home Medications prednisone 5 mg tablet 5 mg PO DAILY 12/22/14 [History Last Taken 05/27/23] gabapentin 400 mg capsule 1,200 mg PO TID 04/22/15 [History Last Taken 05/27/23] cyanocobalamin (vitamin B-12) 500 mcg tablet 500 mcg PO DAILY 12/05/15 [History Last Taken 05/26/23] hydroxyzine HCl 50 mg tablet 50 mg PO QHS 08/14/17 [History Last Taken 05/26/23] duloxetine 60 mg capsule,delayed release 60 mg PO BID 09/22/18 [History Last Taken 05/27/23] cetirizine 10 mg capsule (Zyrtec) 10 mg PO DAILY PRN Allergies 05/27/20 [History Last Taken 05/26/23] latanoprost 0.005 % eye drops (Xalatan) 1 drp ophthalmic (eye) QHS both eyes 05/27/20 [History Last Taken 05/26/23] triamcinolone acetonide 0.1 % topical cream 1 applic topical PRN PRN ITCHING 05/27/20 [History Last Taken 05/26/23] fluticasone propionate 50 mcg/actuation nasal spray,suspension (Allergy Relief (fluticasone)) 2 spray intranasal DAILY PRN PRN allergy symptoms 09/21/20 [History Last Taken Unknown] donepezil 10 mg tablet 15 mg PO DAILY 03/12/23 [History Last Taken 05/27/23] polysaccharide iron complex 150 mg iron capsule 150 mg PO QODAY 03/12/23 [History Last Taken 05/26/23] atorvastatin 80 mg tablet 80 mg PO QHS #90 tabs 04/17/23 [Rx Last Taken 05/26/23] cholecalciferol (vitamin D3) 75 mcg (3,000 unit) tablet 3,000 unit PO QDAY #90 tabs 04/17/23 [Rx Last Taken 05/26/23] dicyclomine 20 mg tablet 20 mg PO Q6H PRN abdominal pain #180 tabs 04/17/23 [Rx Last Taken 05/26/23] esterified estrogens 1.25 mg tablet 1.25 mg PO QHS #90 tabs 04/17/23 [Rx Last Taken 05/26/23] sitagliptin phosphate 25 mg tablet (Januvia) 25 mg PO DAILY #90 tabs 04/17/23 [Rx Last Taken 05/26/23] verapamil 360 mg 24 hr capsule,extended release 360 mg PO QHS #90 caps 04/17/23 [Rx Last Taken 05/26/23] lansoprazole 30 mg capsule,delayed release 30 mg PO BID #180 caps 04/24/23 [Rx Last Taken 05/27/23] valsartan 320 mg tablet (Diovan) 320 mg PO QHS #90 tabs 04/29/23 [Rx Last Taken 05/26/23] amitriptyline 25 mg tablet 25 mg PO QHS 05/24/23 [History Last Taken 05/26/23] warfarin 1 mg tablet 1.5 mg PO MO 05/24/23 [History Last Taken 05/20/23] warfarin 3 mg tablet 3 mg PO SUTUWETHFRSA 05/24/23 [History Last Taken 05/20/23] Allergy/AdvReac Type Severity Reaction Status Date / Time chlorhexidine Allergy Itching Verified 05/27/23 09:51 [From ChloraPrep Clear] iodine Allergy BREATHING Verified 05/27/23 09:51 ISSUES/PRESSURE IN CHEST isopropyl alcohol Allergy Itching Verified 05/27/23 09:51 [From ChloraPrep Clear] povidone-iodine Allergy Rash Verified 05/27/23 09:51 [From Betadine] adhesive tape AdvReac Severe SKIN Verified 05/27/23 09:51 BREAKDOWN latex AdvReac Severe ADVERSE Verified 05/27/23 09:51 REACTION soap [From Betadine] AdvReac Rash Verified 05/27/23 09:51 Family History Father CAD (coronary artery disease) Alzheimer disease Anemia Anxiety Arthritis Bleeding disorder Depression (emotion) Heart disease High cholesterol Melanoma Respiratory disease Skin cancer ULCER DISEASE Mother Diabetes Arthritis Heart disease Hypertension Osteoporosis Daughter Hormonal disorder Brother Anxiety Asthma Bleeding disorder Depression (emotion) Heart disease Sister Cancer Lung cancer Grandfather CVA (cerebral vascular accident) Grandmother CVA (cerebral vascular accident) Surgical History (Updated 05/24/23 @ 08:36 by Thao Hopkins) excision soft tissue mass H/O tubal ligation History of cardiac catheterization History of cholecystectomy History of hysterectomy History of knee replacement procedure of left knee History of knee surgery History of lumpectomy of left breast History of repair of rotator cuff History of surgical removal of skin lesion History of tonsillectomy History of total hysterectomy History of total left knee replacement History of total right knee replacement History of tubal ligation Hx of knee surgery S/P breast lumpectomy S/P cholecystectomy S/P left knee arthroscopy S/P left rotator cuff repair S/P rotator cuff repair S/P tonsillectomy Social History (Updated 04/17/23 @ 13:53 by Oneyda Velazquez MA) adopted: No household members: none housing: house current occupational status: retired pets and animals: No Smoking Status: Never smoker alcohol intake: never substance use type: does not use caffeine: No what type of physical activity do you participate in: additional details: stretching, marching while sitting frequency: 3-4 times per week duration: 60-90 minutes/day seatbelt use: always do you feel safe at home: Yes additional social history: DOES NOT USE ASPIRIN DOES NOT USE IBUPROFEN Vital Signs Vital Signs Vital Signs: Weight Weight: 184 lb Physical Exam Narrative Left breast: Previous areolar incision well-healed at about 2-3 o'clock, previous breast biopsy site well-healed, fibroglandular tissue, no masses on exam, no nipple discharge or pain, no change in overlying skin Const alert, oriented x3 and no apparent distress HEENT normocephalic and head/scalp atraumatic Resp normal respiratory effort Cardio regular rate GI soft to palpation and non-tender; Negative for non-distended Palpation: Negative for guarding Extremity no clubbing, cyanosis or edema Skin no rashes or lesions noted Neuro CN's II-XII intact bilaterally Psych mental status grossly normal Results Lab / Micro Data Labs: Laboratory Results - last 24 hr 05/27/23 09:14: POC PT 11.9, INR 1.0 Assessment & Plan Assessment/Plan (1) Mass of multiple sites of left breast: PLAN: Plan Discussed the procedure of stereotactic needle localization excisional left breast biopsy x 2. Including risk not limited to bleeding, infection, need for further surgery. Patient did hold her Coumadin for 6 days. Patient has no further questions this time. Patient does states okay to use the clear ChloraPrep but it does need to be washed off after surgery completed. Pam Santos M.D. Pager: [phone] [facility] [address] [place] [address], [facility], [address] [place] [address] Office: [phone]
[2023-05-27] MEDS: Lactated Ringers 1,000 ML 15 ML IV (09:55)
[2023-05-27 10:01] LABS: Bedside Glucose 152 mg/dL (74-106)
--- NOTE | 2023-05-27 10:20 | BI_ITS ---
SURGICAL BREAST SPECIMEN RADIOGRAPH CLINICAL: Document presence of tissue clip marker in biopsy specimen. FINDINGS: Specimen shows presence of tissue clip marker. Electronically Signed: George Limon MD at 9:46 EDT , BI/Breast Biopsy Specimen IMPRESSION: undefined
[2023-05-27] MEDS: Cefazolin 2 GM in 0.9% Normal Saline (100mL Bag) 100 ML IV (12:07)
[2023-05-27] MEDS: Lidocaine 1% /Epi 1:100 (20ml) 20 ML Vial (12:21)
[2023-05-27] MEDS: Bupivacaine 0.25% 30 ML Vial (12:21)
--- NOTE | 2023-05-27 12:30 | BRBX_PTH ---
PATIENT: NOEMI LYON LOC: [facility] U#:[id number] AGE/SX: 72/F ROOM: RE05/27/[address]: Dr. Pam Santos MD : 1950 BED: DIS: 05/27/2023 SPEC #: [id number] RECD: 05/27/23 12:54 STATUS: MAR REQ #: [id number] AFSHIN: 05/27/23 12:[address]: Pam Santos DEPT: SURGICAL PATHOLOGY RECD BY: Xin Cardoza ENTERED: 05/28/23 08:46 SP TYPE: BREAST BX OTHR DR: Dr. Joss Nicholson MD Tissues: Left breast, NOS Procedures: Surgery Specimen Level IV HEADER OPERATION: Stereo wire localization excisional breast, biopsy PRE-OP DIAGNOSIS: Mass multiple sites left breast TISSUE SUBMITTED: Left breast mass- long tag lateral, short tag superior MICROSCOPIC DIAGNOSIS Left breast mass, excisional biopsy with wire localization: Multifocal intraductal hyperplasia without atypia. Focal adenosis. Focal changes consistent with previous biopsy site. Focal microcalcifications. Negative for malignancy. See comment. / 05/30/23 COMMENT Correlation with clinical, radiologic findings and appropriate follow up are necessary. Case has been reviewed in consultation with Dr. Lyles who concurs with the above diagnosis. IDC:AM MICROSCOPIC DESCRIPTION Slides are reviewed. GROSS DESCRIPTION Received in fixative is one container labeled with the patient's name and designated Left breast tissue. The specimen consists of a piece of fibroadipose tissue with wire localization x2 measuring 4.5 x 3.0 x 1.5cm. The specimen is inked, serially sectioned and reveal finch-yellow adipose cut surfaces focal fibrous area. No obvious mass is identified. The entire specimen is submitted in 10 cassettes. Cassette contains the most posterior portion, Cassette 10 contains the most interior portion. [facility] 05/28/23 TC:5 CPT: 08782
--- NOTE | 2023-05-27 12:47 | OP.PCM_ITS ---
Report of Operation Date of Procedure: 05/27/23 Pre-Operative Diagnosis: Left breast mass x 2 Post-Operative Diagnosis: Same Surgery/Procedure Performed:: Stereotactic wire localization left breast excisional biopsy x 2 Surgeon: Pam Santos cotton seed culler: Sabino Todd Type of Anesthesia: General/Supplemental Anesthesiologist: Tramaine Gonzalez Special Medications: Ancef 2 g IV x 1 Specimen's removed: Left breast mass containing both clips Estimated Blood Loss (mL): < 10 cc Description of Procedure: Indications: 72-year-old female presents due to left breast biopsy x 2 pathology showed fibrocystic- patient wanted to have these areas excised along with clips. Description of procedure: Informed consent was obtained. For stereotactic left breast wire localization x 2. Both clips were seen and localized. Breast was cleaned with clear ChloraPrep. the Bard wire was used to bracket the 2 clips. Localization studies were completed to view mammography. Patient tolerated procedure well. Patient was brought to operating placed supine on the operating table. Timeout was completed verifying correct patient, procedure, site, positioning, special, prior to being procedure. General anesthesia was induced. The left breast was prepped and draped in a sterile fashion with clear ChloraPrep. Curvilinear incision was planned between the 2 localization wires. Both clips were dissected and 1 specimen the top wire being superior aspect and the bottom wire inferior. Once the specimen was removed it was sent to mammography to verify both clips were removed along with both wires?this was confirmed. Hemostasis was achieved with electrocautery. Cavity was irrigated. Incision closed with 3-0 Vicryl subdermal interrupted sutures and skin was closed with 4-0 Monocryl running suture. Dermabond was placed over the incision. Clear ChloraPrep was removed with saline and gauze as patient does have an allergy but states it is okay if it is removed right after. Patient tolerated procedure well and was taken to the postanesthesia care in stable condition. Complications none
--- NOTE | 2023-05-27 12:55 | DCINST_ITS ---
Discharge Instructions Diet Discharge Diet: No restrictions Activity Discharge Activity: May Not Drive (for 2-3 days or while taking narcotic pain meds.) May shower in (days): 1 Lifting Restrictions: 10 pounds for 1 week. Dressing / Incision Call your doctor if your incision/area has: Continuous Slow Oozing, Sudden Increased Bleeding, Increased Pain/ Swelling and Increased Redness Call your doctor if you observe: Fever of 101 or Higher Suture Line Care: Avoid Pulling/Pushing and Avoid Pinching/Bending Remove Dressing in: 1 day Additional Dressing/Incision Instructions:: Dermabond (glue) was used at the incision this may start to peel off in about 5 days. Wear good supportive bra for the first couple days. Follow Up Care Please Follow Up With: Pam Santos MD When: Please call [phone] for an appointment to be seen in 2 week. Test Results: Test results from this visit will be discussed in further detail at your follow- up appointment, if applicable. Discharge Plan Admission Attending Provider: Pam Santos Primary Care Provider: Joss Nicholson Discharge Orders/Prescriptions Prescriptions: New tramadol 50 mg tablet 50 mg PO Q6H PRN (Reason: pain) 3 Days Qty: 5 0RF Continued fluticasone propionate [Allergy Relief (fluticasone)] 50 mcg/actuation spray,suspension 2 spray intranasal DAILY PRN PRN (Reason: allergy symptoms) Rx Instructions: administer into each nostril latanoprost [Xalatan] 0.005 % drops 1 drp OPHTHALMIC QHS triamcinolone acetonide 0.1 % cream 1 applic TOPICAL PRN PRN (Reason: ITCHING) Zyrtec 10 mg capsule 10 mg PO DAILY PRN (Reason: Allergies) donepezil 10 mg tablet 15 mg PO DAILY polysaccharide iron complex 150 mg iron capsule 150 mg PO QODAY Patient Comments: TAKE ONE CAPSULE BY MOUTH TWICE DAILY, ONLY 4 DAYS per week. cholecalciferol (vitamin D3) 75 mcg (3,000 unit) tablet 3,000 unit PO QDAY Qty: 90 1RF dicyclomine 20 mg tablet 20 mg PO Q6H PRN (Reason: abdominal pain) Qty: 180 1RF verapamil 360 mg capsule,ext rel. pellets 24 hr 360 mg PO QHS Qty: 90 3RF esterified estrogens 1.25 mg tablet 1.25 mg PO QHS Qty: 90 1RF Rx Instructions: Menest Januvia 25 mg tablet 25 mg PO DAILY Qty: 90 1RF atorvastatin 80 mg tablet 80 mg PO QHS Qty: 90 1RF prednisone 5 MG tablet 5 mg PO DAILY Patient Comments: INFLAMMATION duloxetine 60 mg capsule,delayed release(DR/EC) 60 mg PO BID Patient Comments: DEPRESSION gabapentin 400 MG capsule 1,200 mg PO TID Patient Comments: NERVE PAIN, 400 MG TAB TAKES 3 AT A TIME cyanocobalamin (vitamin B-12) 500 MCG tablet 500 mcg PO DAILY Patient Comments: SUPPLEMENT hydroxyzine HCl 50 mg tablet 50 mg PO QHS Patient Comments: VERTIGO amitriptyline 25 mg tablet 25 mg PO QHS lansoprazole 30 mg capsule,delayed release(DR/EC) 30 mg PO BID Qty: 180 1RF valsartan [Diovan] 320 mg tablet 320 mg PO QHS Qty: 90 1RF Held warfarin 3 mg tablet 3 mg PO SUTUWETHFRSA Hold Instructions: Resume on 05/28/23. Protocol: Dose Management Condition: Saturday Dose/Route: 3 mg Instruction: 1 x 3 mg tablet Condition: Saturday Dose/Route: 4.5 mg Instruction: 1.5 x 3 mg tablets Condition: Saturday Dose/Route: 3 mg Instruction: 1 x 3 mg tablet Condition: Saturday Dose/Route: 3 mg Instruction: 1 x 3 mg tablet Condition: Dose/Route: 3 mg Instruction: 1 x 3 mg tablet Condition: Saturday Dose/Route: 4.5 mg Instruction: 1.5 x 3 mg tablets Condition: Saturday Dose/Route: 3 mg Instruction: 1 x 3 mg tablet Protocol Text: Adjustment Start Date: Saturday05/17/23 INR Value: 1.7 INR Date: 05/15/23 Recheck Date: 05/24/23 Patient Comments: LAST DOSE 06/06/20 warfarin 1 mg tablet 1.5 mg PO MO Hold Instructions: Resume on 05/28/23. Protocol: Dose Management Condition: Saturday Dose/Route: 3 mg Instruction: 1 x 3 mg tablet Condition: Saturday Dose/Route: 4.5 mg Instruction: 1.5 x 3 mg tablets Condition: Saturday Dose/Route: 3 mg Instruction: 1 x 3 mg tablet Condition: Saturday Dose/Route: 3 mg Instruction: 1 x 3 mg tablet Condition: Dose/Route: 3 mg Instruction: 1 x 3 mg tablet Condition: Saturday Dose/Route: 4.5 mg Instruction: 1.5 x 3 mg tablets Condition: Saturday Dose/Route: 3 mg Instruction: 1 x 3 mg tablet Protocol Text: Adjustment Start Date: Saturday05/17/23 INR Value: 1.7 INR Date: 05/15/23 Recheck Date: 05/24/23 Referrals / Follow Up: Joss Nicholson MD [Primary Care Provider] - Disposition Disposition (needs filled in before D/C Order can be placed): Home, Self Care
[2023-05-27 13:44] LABS: Bedside Glucose 148 mg/dL (74-106)
== END 2023-05-27 14:46 | disposition home or self-care (01) ==
LOC: SDC 08:50 → AC 08:54
PROVIDERS: PCP Internal Medicine; Referring Provider Surgery; Visit Provider Surgery
PROC: (CPT 19125; principal; 2023-05-27 12:15)
DX: N60.22 Fibroadenosis of left breast (principal); I48.0 Paroxysmal atrial fibrillation; E11.40 Type 2 diabetes mellitus with diabetic neuropathy, unspecified; E78.00 Pure hypercholesterolemia, unspecified; I10 Essential (primary) hypertension; M79.7 Fibromyalgia; Z79.01 Long term (current) use of anticoagulants; N63.20 Unspecified lump in the left breast, unspecified quadrant; Z80.3 Family history of malignant neoplasm of breast; J45.909 Unspecified asthma, uncomplicated; Z79.899 Other long term (current) drug therapy; Z79.84 Long term (current) use of oral hypoglycemic drugs
CPT/HCPCS: 19125; 19126; 19281; 19282; 36416; 76098; 82962; 85610; 88305; J2405